=== PATIENT | male | born 1930 | race Caucasian/White ===

== ENCOUNTER 2017-01-10 17:26 | Emergency (ER) | payer MEDICARE ==
[~2017-01-10] VITALS: Ht 175.3 cm; Wt 62.1 kg
[~2017-01-10 17:26] MED LIST: CAYENNE450 MG PO; LEVOTHYROXINE125 MCG PO; NORCO 5-325 TA1 EACH PO
[2017-01-10] MEDS ORDERED: LEVOTHYROXINE88 MCG PO (17:39)
--- NOTE | 2017-01-12 18:23 | EKG ---
[facility] [address] [facility] [place] [address] Signed Sinus rhythm with occasional premature ventricular complexes Right bundle branch block Abnormal ECG When compared with ECG of 13-JUL-2016 12:21, premature ventricular complexes are now present QRS axis shifted right Borderline criteria for Inferior infarct are no longer present Confirmed by MARIMAR AU MD ([id number]) on 01/12/2017 6:23:26 PM Electronically Signed By: MARIMAR AU MD 01/12/17 1823 PATIENT NAME: TANISHABRENDA LILIANA Electrocardiogram DATE OF : 30 PHYSICIAN: MARIMAR AU MD REPORT #: [id number] REPORT IS CONFIDENTIAL AND NOT TO BE RELEASED WITHOUT AUTHORIZATION
== END 2017-01-10 20:23 | disposition home or self-care (01) ==
LOC: ED 17:26
DX: G45.9 Transient cerebral ischemic attack, unspecified (principal); I10 Essential (primary) hypertension; Z90.49 Acquired absence of other specified parts of digestive tract; Z79.899 Other long term (current) drug therapy
CPT/HCPCS: 70496; 70498; 71010; 80053; 85025; 85610; 85730; 93005; 93010; 99284; Q9967

== ENCOUNTER 2017-10-30 10:13 | Emergency (ER) | payer MEDICARE ==
[~2017-10-30] VITALS: Ht 175.3 cm; Wt 63.5 kg
--- OUTSIDE RECORDS SUMMARY | ~2017-10-30 | XMS | Clinical Summary ---
Demographics + + + | Address | [address] | | | [place] [address] | + + + | Home Phone | | + + + | Preferred Language | Unknown | + + + | Marital Status | Single | + + + | Oriental Orthodox Affiliation | Unknown | + + + | Race | Unknown | + + + | Ethnic Group | Other Race | + + + Author + + + | Author | [facility] | + + + | Organization | [facility] | + + + | Address | Unknown | + + + | Phone | Unavailable | + + + Care Team Providers + +------+ + | Care Finnish Rubber Name | Role | Phone | + +------+ + PP | Unavailable | + +------+ + Source Comments [facility] is fully live on both [facility] and [facility] InPatient.[facility] Allergies Not on File Current Medications Not on file Active Problems Not on file Social History + +-------+ +--------+------+ | Tobacco [...] on file | | + + + Plan of Treatment + + + + + | Health Maintenance | Due Date | Last Done | Comments | + + + + + | INFLUENZA VACCINE | | | | | (FLU SHOT) | 8 | | | + + + + + Results Not on filefrom Last 3 Months"
--- OUTSIDE RECORDS SUMMARY | ~2017-10-30 | XMS | Clinical Summary ---
Demographics + + + | Address | [address] | | | [place] [address] | + + + | Home Phone | | + + + | Preferred Language | Unknown | + + + | Marital Status | Single | + + + | Hoahaoism Affiliation | Unknown | + + + | Race | Unknown | + + + | Ethnic Group | Other Race | + + + Author + + + | Author | [facility] | + + + | Organization | [facility] | + + + | Address | Unknown | + + + | Phone | Unavailable | + + + Care Team Providers + +------+ + | Care Senior Business Intelligence Analyst Name | Role | Phone | + +------+ + PP | Unavailable | + +------+ + Source Comments [facility] is fully live on both [facility] Ambulatory and [facility] InPatient.[facility] Allergies Not on File Current Medications Not [...]
[~2017-10-30 10:13] MED LIST changes: +LEVOTHYROXINE88 MCG PO
[2017-10-30] MEDS ORDERED: LISINOPRIL5 MG PO (10:28)
--- NOTE | 2017-10-30 22:00 | EKG ---
[facility] [address] [address] Signed Normal sinus rhythm Right bundle branch block T wave abnormality, consider inferior ischemia Abnormal ECG When compared with ECG of 10-JAN-2017 17:57, premature ventricular complexes are no longer present Vent. rate has increased BY 38 BPM Nonspecific T wave abnormality no longer evident in Lateral leads Confirmed by MARIMAR AU MD ([id number]) on 10/30/2017 9:59:57 PM Electronically Signed By: MARIMAR AU MD 10/30/172199 PATIENT NAME: BRENDA GARAY LILIANA Electrocardiogram DATE OF : 30 PHYSICIAN: MARIMAR AU MD REPORT #: [id number] REPORT IS CONFIDENTIAL AND NOT TO BE RELEASED WITHOUT AUTHORIZATION
== END 2017-10-30 15:55 | disposition short-term general hospital (02) ==
LOC: ED 10:13
DX: I21.4 Non-ST elevation (NSTEMI) myocardial infarction (principal); I11.0 Hypertensive heart disease with heart failure; I50.9 Heart failure, unspecified; I10 Essential (primary) hypertension; Z79.899 Other long term (current) drug therapy
CPT/HCPCS: 71045; 80053; 81001; 83880; 84484; 85025; 85610; 93005; 93010; 96374; 99285

== ENCOUNTER 2017-11-03 11:36 | Emergency (ER) | payer MEDICARE ==
[~2017-11-03] VITALS: Ht 175.3 cm; Wt 63.5 kg
--- OUTSIDE RECORDS SUMMARY | ~2017-11-03 | XMS | Encounter Summary ---
Demographics + + + | Address | [address] | | | [place] [address] | + + + | Home Phone | | + + + | Preferred Language | Unknown | + + + | Marital Status | | + + + | Sikh Affiliation | Unknown | + + + | Race | Unknown | + + + | Ethnic Group | Unknown | + + + Author + + + | Author | [facility] | | | and [place] | + + + | Organization | [facility] | | | and [place] | + + + | Address | Unknown | + + + | Phone | Unavailable | + + + Support + + +---------+ + | Name | Relationship | Address | Phone | + + +---------+ + | Eloise Thompson | ECON | Unknown | | + + +---------+ + | JayAdelaidacandelaria [place] ECON | Unknown | | + + +---------+ + Care Team Providers + +------+ + | Care Casting Assistant Name | Role | Phone | + +------+ + | Deniz Rey | PCP | | | MD | | | + +------+ + Encounter Details +--------+ + + + + | Date | Type | Department | Care Team | Description | +--------+ + + + + | 10/31/ | Orders Only | [facility] | Divya Mead, NECKTIE MAKER | | | 2018 | | [facility] | | | | | | FUNCTION [address] | | | | | [place], | | | | | | [place] [address] | | | | | | [phone] | | | +--------+ + + + + Social History + +-------+ +--------+------+ | Tobacco Use | Types | Packs/Day | Years | Date | | | | | Used | | + +-------+ +--------+------+ | Never Assessed | | | | | + +-------+ +--------+------+ + + + | Sex Assigned at | Date Recorded | | | | + + + | Not on file | | + + + as of this encounter Plan of Treatment Not on fileas of this encounter Visit Diagnoses Not on filein this encounter"
--- OUTSIDE RECORDS SUMMARY | ~2017-11-03 | XMS | Clinical Summary ---
Demographics + + + | Address | [address] | | | [place] [address] | + + + | Home Phone | | + + + | Preferred Language | Unknown | + + + | Marital Status | | + + + | Oriental Orthodox Affiliation | Unknown | + + + | Race | Unknown | + + + | Ethnic Group | Unknown | + + + Author + + + | Author | [facility] | | | and Khadarana | + + + | Organization | [facility] | | | and Khadarana | + + + | Address | Unknown | + + + | Phone | Unavailable | + + + Support + + +---------+ + | Name | Relationship | Address | Phone | + + +---------+ + | Eloise Garay | ECON | Unknown | | + + +---------+ + | Fuentes Garay ECON | Unknown | | + + +---------+ + Care Team Providers + +------+ + | Care Seismic Prospecting Observer Helper Name | Role | Phone | + +------+ + | Deniz Rey | PP | | | MD | | | + +------+ + Allergies No Known Allergies Current Medications + + +--------+---------+------+------+-------+ | Prescription | Sig. | Disp. | Refills | Star | End | Statu | | | | | | t | Date | s | | | | | | Date | | | + + +--------+---------+------+------+-------+ | artificial tears | Place 1 drop into | | | | | Activ | | (REFRESH TEARS) | both eyes 4 times | | | | | e | | ophthalmic solution | daily. | | | | | | + + +--------+---------+------+------+-------+ | levothyroxine | Take 88 mcg by mouth | | | | | Activ | | (SYNTHROID) 88 mcg | every morning | | | | | e | | tablet | (before breakfast). | | | | | | + + +--------+---------+------+------+-------+ | Multiple | Take 1 capsule by | | | | | Activ | | Vitamins-Minerals | mouth 2 times daily. | | | | | e | | (PRESERVISION AREDS | | | | | | | | 2+MULTI VIT) CAPS | | | | | | | + + +--------+---------+------+------+-------+ | artificial tears | Place 1 drop into | | | | | Activ | | (REFRESH LIQUIGEL) | both eyes nightly. | | | | | e | | ophthalmic solution | | | | | | | + + +--------+---------+------+------+-------+ | lisinopril | Take 1 tablet by | 60 | 0 | 05/0 | | Activ | | (PRINIVIL, ZESTRIL) | mouth 2 times daily. | tablet | | 2/20 | | e | | 5 mg tablet | | | | 18 | | | + + +--------+---------+------+------+-------+ | aspirin 81 mg | Take 1 tablet by | 30 | | 05/0 | | Activ | | chewable tablet | mouth Daily. | tablet | | 3/20 | | e | | | | | | 18 | | | + + +--------+---------+------+------+-------+ | atorvaSTATin | Take 1 tablet by | 30 | 0 | 05/0 | | Activ | | (LIPITOR) 40 mg | mouth Daily. | tablet | | 2/20 | | e | | tablet | | | | 18 | | | + + +--------+---------+------+------+-------+ | metoprolol | Take 0.5 tablets by | 30 | 0 | 05/0 | | Activ | | tartrate (LOPRESSOR) | mouth 2 times daily. | tablet | | 2/20 | | e | | 25 mg tablet | | | | 18 | | | + + +--------+---------+------+------+-------+ | nitroglycerin | Place 1 tablet under | 25 | 0 | 05/0 | | Activ | | (NITROSTAT) 0.4 mg | the tongue every 5 | tablet | | 2/20 | | e | | SL tablet | minutes as needed | | | 18 | | | | | for Chest pain. | | | | | | + + +--------+---------+------+------+-------+ | spironolactone | Take 0.5 tablets by | 30 | 0 | 05/0 | | Activ | | (ALDACTONE) 25 mg | mouth Daily. | tablet | | 3/20 | | e | | tablet | | | | 18 | | | + + +--------+---------+------+------+-------+ | furosemide (LASIX) | Take 1 tablet by | 50 | 0 | 05/0 | | Activ | | 80 mg tablet | mouth Daily. | tablet | | 2/20 | | e | | | | | | 18 | | | + + +--------+---------+------+------+-------+ | potassium chloride | Take 1 tablet by | 30 | 0 | 05/0 | | Activ | | (KLOR-CON) 10 mEq | mouth Daily. | tablet | | 2/20 | | e | | CR tablet | | | | 18 | | | + + +--------+---------+------+------+-------+ | lisinopril | Take 5 mg by mouth | | | | 05/0 | Disco | | (PRINIVIL, ZESTRIL) | Daily. | | | | 2/20 | ntinu | | 5 mg tablet | | | | | 18 | ed | + + +--------+---------+------+------+-------+ Active Problems + + + | Problem | Noted Date | + + + | Acute exacerbation of CHF (congestive heart failure) ([facility]) | 10/30/2017 | + + + | Elevated troponin | 10/30/2017 | + + + | Essential hypertension | 10/30/2017 | + + + | Acquired hypothyroidism | 10/30/2017 | + + + | CVA (cerebral vascular accident) ([facility]) | 10/30/2017 | + + + | NSTEMI (non-ST elevated myocardial infarction) ([facility]) | 10/30/2017 | + + + Encounters +--------+ + + + + | Date | Type | Specialty | Care Team | Description | +--------+ + + + + | 10/31/ | Orders Only | | Divya Mead RRT | | | 2017 | | | | | +--------+ + + + + | 10/30/ | Hospital | | Mary Lou Dorado MD | NSTEMI (non-ST | | 2017 - | Encounter | | | elevated myocardial | | | | | | infarction) ([facility]); | | 11/02/ | | | | Essential | | 2017 | | | | hypertension; Acute | | | | | | on chronic | | | | | | congestive heart | | | | | | failure, unspecified | | | | | | heart failure type | | | | | | ([facility]); Acute on | | | | | | 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 | | | Name/Age/DO | | | B: Brenda | | | Liliana | | | Tanisha | | | 87 y.o. | | | 1930 | | | | | | Medical | | | Record | | | Number: | | | | | | [id number] | | | Date of | | | Admission: | | | | | | 10/30/2017 | | | Date | | | of | | | Discharge: | | | | | | 11/02/2017Adm | | | itting | | | Physician: | | | Mary Lou | | | MD Ave | | | Primary | | | Care | | | Provider: | | | Deniz Wilkerson | | | Krissy, | | | MDDischargi | | | ng | | | Physician: | | | Salty Sellers | | | MD Mason | | | | | | DISCHARGE | | | DIAGNOSES: | | | Active | | | Hospital | | | Problems | | | Diagnosis | | | | | | NSTEMI | | | (non-ST | | | elevated | | | myocardial | | | infarction) | | | | | | Acute | | | exacerbatio | | | n of | | | systolic | | | CHF | | | (congestive | | | heart | | | failure) | | | | | | | | | obstructive | | | uropathy | | | with gross | | | hematuria | | | following | | | catheter | | | placement | | | | | | Essential | | | | | | hypertensio | | | n | | | Acquired | | | hypothyroid | | | ism | | | Resolved | | | Hospital | | | Problems | | | Diagnosis | | | No resolved | | | problems | | | to display. | | | DISCHARGE | | | MEDICATIONS | | | : | | | Discharge | | | Medications | | | New | | | Medications | | | Details | | | aspirin 81 | | | mg | | | chewable | | | tabletNotes | | | to | | | patient: | | | For heart | | | and to help | | | prevent | | | blood clots | | | Take 1 | | | tablet by | | | mouth | | | Daily.Start | | | : 11/03/2017 | | | | | | atorvaSTATi | | | n 40 mg | | | tabletNotes | | | to | | | patient: | | | For | | | cholesterol | | | Take 1 | | | tablet by | | | mouth | | | Daily.aka: | | | LIPITOR | | | furosemide | | | 80 mg | | | tabletNotes | | | to | | | patient: | | | For fluid | | | overload | | | Take 1 | | | tablet by | | | mouth | | | Daily.aka: | | | LASIX | | | metoprolol | | | tartrate 25 | | | mg | | | tabletNotes | | | to | | | patient: | | | For heart | | | and blood | | | pressure | | | Take 0.5 | | | tablets by | | | mouth 2 | | | times | | | daily.aka: | | | LOPRESSOR | | | nitroglycer | | | in 0.4 mg | | | SL tablet | | | Place 1 | | | tablet | | | under the | | | tongue | | | every 5 | | | minutes as | | | needed for | | | Chest | | | pain.aka: | | | NITROSTAT | | | potassium | | | chloride 10 | | | mEq CR | | | tabletNotes | | | to | | | patient: | | | To help | | | replace | | | potassium | | | Take 1 | | | tablet by | | | mouth | | | Daily.aka: | | | KLOR-CON | | | spironolact | | | one 25 mg | | | tablet Take | | | 0.5 | | | tablets by | | | mouth | | | Daily.aka: | | | | | | ALDACTONESt | | | art: | | | 11/03/2017 | | | Changed | | | Medications | | | Details | | | lisinopril | | | 5 mg | | | tabletNotes | | | to | | | patient: | | | For heart | | | and blood | | | pressure | | | Take 1 | | | tablet by | | | mouth 2 | | | times | | | daily.What | | | changed: | | | when to | | | take | | | thisaka: | | | PRINIVIL, | | | ZESTRIL | | | Unchanged | | | Medications | | | Details | | | artificial | | | tears | | | ophthalmic | | | solutionNot | | | es to | | | patient: | | | For dry | | | eyes Place | | | 1 drop into | | | both eyes | | | 4 times | | | daily.aka: | | | REFRESH | | | TEARS | | | REFRESH | | | LIQUIGEL | | | ophthalmic | | | solutionGen | | | elías drug: | | | artificial | | | tearsNotes | | | to | | | patient: | | | For dry | | | eyes Place | | | 1 drop into | | | both eyes | | | nightly. | | | levothyroxi | | | ne 88 mcg | | | tabletNotes | | | to | | | patient: | | | For thyroid | | | Take 88 | | | mcg by | | | mouth every | | | morning | | | (before | | | breakfast). | | | aka: | | | SYNTHROID | | | PRESERVISIO | | | N AREDS | | | 2+MULTI VIT | | | Caps Take | | | 1 capsule | | | by mouth 2 | | | times | | | daily. | | | DISCHARGE | | | INSTRUCTION | | | S: | | | Follow-up | | | Information | | | Deniz | | | C Hitzman, | | | MD On | | | 11/04/2017. | | | Specialty: | | | Family | | | MedicineWhy | | | : Please | | | check in at | | | 9:50 am | | | for an appt | | | @ 10:00 | | | am.Contact | | | information | | | :[address] | | [address] | | | [address] | | | n [place] | | | [phone] | | | [phone] | | | | | | REFERENCE | | | LAB | | | [facility] | | | [facility]OR[facility] | | | On | | | 11/03/2017. | | | Specialty: | | | LabWhy: | | | Please have | | | lab work | | | done on | | | , | | | 11/03 prior | | | to appt on | | | 11/04 with | | | MD. This | | | will allow | | | your MD to | | | have lab | | | results for | | | the | | | appt.Contac | | | t | | | information | | | :[address] | | [address] | | | [address] | | | n [place] | | | [phone] | | | [phone] | | | | | | RESULTS: | | | Transthorac | | | ic | | | Echocardiog | | | demetrice | | | Report | | | (TTE) Demo | | | graphics P | | | atient Name | | | | | | TANISHA | | | BRENDA | | | Room Number | | | | | | | | | [address] | | | | | | | | | [address] | | | ent Number | | | [id number] | | | | | | Date of | | | Study | | | | | | 10/30/2017 | | | Visit | | | Number | | | [id number] | | | Accession | | | | | | [id number] | | | HS | | | Referring | | | Physician | | | AVE | | | GRAEME-HWA Nu | | | mber Date | | | of | | | [birth year] | | | 0 | | | Sonograph | | | er | | | | | | ZILLIOX | | | BEVERLY | | | | | | | | | | | | | | | | | | | | | | | | | | | RDCS Age | | | | | | 87 | | | year(s) | | | | | | Interpret | | | ing | | | J | | | DAWIT | | | ERICKA, | | | MD | | | | | | | | | | | | | | | Cardiolog | | | ist Gender | | | | | | Male | | | | | | | | | Nurse | | | | | | | | | | | | | | | | | | Stress | | | TechnicianP | | | rocedureTyp | | | e of | | | Study TTE | | | procedure: | | | ECHO | | | Complete.Pr | | | ocedure | | | dateDate: | | | 10/30/2017S | | | tart: 07:04 | | | | | | PMTechnical | | | Quality: | | | Good | | | visualizati | | | onStudy | | | Location: | | | [facility] | | | ications: | | | Myocardial | | | Infarction, | | | NSTEMI | | | 410.90/I21. | | | 4.Patient | | | Status: | | | STATHeight: | | | 68 | | | inchesWeigh | | | t: 149 | | | poundsBSA: | | | 1.8 m^2BMI: | | | 22.66 | | | kg/m^2Concl | | | usionsSumma | | | ryMild to | | | moderate | | | mitral | | | regurgitati | | | on | | | present.The | | | left | | | atrium is | | | moderately | | | dilated.LA | | | pressure is | | | elevated | | | (by Doppler | | | | | | ratios)Left | | | | | | ventricular | | | size | | | appears to | | | be mildly | | | increased | | | with an | | | ejectionfra | | | ction | | | estimated | | | at 30-35 | | | %.Akinetic | | | inferior | | | and | | | posterior | | | basal blanca | | | of left | | | ventricle.G | | | lobal | | | hypokinesis | | | of the | | | left | | | ventricle.D | | | oppler flow | | | profile | | | suggests a | | | pseudo-norm | | | al | | | diastolic | | | filling | | | pattern.IVC | | | is not | | | well | | | visualized | | | but seems | | | to be | | | dilated | | | with | | | impaired | | | inspiratory | | | collapse | | | consistent | | | with | | | elevated | | | right | | | atrial | | | pressure.Si | | | gnature---- | | | | | | | | | | | | | | | | | | | | | ------ Aminata | | | ctronically | | | signed by | | | Virgie LANCASTER | | | ERICKA | | | (Interpre | | | vickie | | | physician) | | | on | | | 018 09:45 | | | AM--------- | | | | | | | | | | | | | | | | | | | | | -FindingsMi | | | tral | | | ValveMild | | | to moderate | | | mitral | | | regurgitati | | | on | | | present.Aor | | | tic | | | ValveDiffus | | | e | | | thickening | | | (sclerosis) | | | of the | | | aortic | | | valve cusps | | | without | | | reducedexcu | | | rsion.Aorti | | | c valve | | | appears | | | trileaflet. | | | Trace | | | aortic | | | regurgitati | | | on is | | | noted.Tricu | | | spid | | | ValveStruct | | | urally | | | normal | | | tricuspid | | | valve with | | | trace | | | regurgitati | | | on.Pulmonic | | | | | | ValveStruct | | | urally | | | normal | | | pulmonic | | | valve with | | | trace | | | regurgitati | | | on.Left | | | AtriumThe | | | left atrium | | | is | | | moderately | | | dilated.LA | | | pressure is | | | elevated | | | (by Doppler | | | | | | ratios)Left | | | | | | VentricleLe | | | ft | | | ventricular | | | size | | | appears to | | | be mildly | | | increased | | | with an | | | ejectionfra | | | ction | | | estimated | | | at 30-35 | | | %.Akinetic | | | inferior | | | and | | | posterior | | | basal blanca | | | of left | | | ventricle.G | | | lobal | | | hypokinesis | | | of the | | | left | | | ventricle.D | | | oppler flow | | | profile | | | suggests a | | | pseudo-norm | | | al | | | diastolic | | | filling | | | pattern.Rig | | | ht | | | AtriumNorma | | | l right | | | atrial | | | size.Right | | | VentricleNo | | | rmal right | | | ventricular | | | size and | | | function.Pe | | | ricardial | | | EffusionNo | | | evidence of | | | | | | pericardial | | | | | | effusion.Pl | | | eural | | | EffusionNo | | | evidence of | | | pleural | | | effusion.Mi | | | scellaneous | | | Aortic root | | | dimension | | | within | | | normal | | | limits.IVC | | | is not well | | | visualized | | | but seems | | | to be | | | dilated | | | with | | | impaired | | | inspiratory | | | collapse | | | consistent | | | with | | | elevated | | | right | | | atrial | | | pressure.Va | | | lves Meme | | | l | | | Valve Peak | | | E-Wave: | | | 0.71 m/s | | | | | | | | | RAMONA | | | PISA: 0.15 | | | cm^2 Peak | | | A-Wave: | | | 0.84 | | | m/s Tissue | | | | | | Doppler Se | | | ptal e' | | | Velocity: | | | 0.04 | | | m/s Septal | | | E/e' | | | Ratio:17.76 | | | Aortic | | | Valve Tric | | | uspid | | | Valve TR | | | Velocity: | | | 3.08 | | | m/sStructur | | | es Left | | | Atrium LA | | | A/P | | | Dimension: | | | 4.59 cm | | | | | | | | | LA Area: | | | 24.78 | | | cm^2 LA | | | Vol/BSA | | | Index: 40 | | | mL/m^2 | | | | | | LA | | | Volume: | | | 72.18 | | | ml Left | | | Ventricle | | | Diastolic | | | Dimension: | | | 6.08 cm | | | | | | Systolic | | | Dimension: | | | 4.98 | | | cm Septum | | | Diastolic: | | | 1.07 cm PW | | | Diastolic: | | | 0.96 | | | cm EF | | | [id number] | | | % EF | | | Calculated: | | | | | | 29% Miscel | | | laneous Ao | | | rta Aortic | | | Root: 3.48 | | | | | | cm Ascendi | | | ng Aorta: | | | 3.57 cm | | | External | | | Result | | | Report | | | Final | | | Impression/ | | | Recommendat | | | ion | | | | | | | | | | | | NUCLEAR | | | MEDICINE | | | STRESS TEST | | | REPORT | | | | | | Patient | | | Name: | | | Brenda Ford | | | Tanisha | | | Study Date: | | | 10/31/2017 | | | Primary | | | Care | | | Provider: | | | Deniz Wilkerson | | | MD Krissy | | | MRN: | | | [id number] | | | : | | | 1930 | | | Age: 87 | | | y.o. | | | Gender: | | | male | | | CLINICAL | | | HISTORY/ANANT | | | GNOSIS: | | | NSTEMI | | | complicated | | | by new | | | onset CHF | | | REGADENOS | | | ON | | | SESTAMIBI | | | STRESS | | | TESTIndicat | | | ion:Risk | | | stratify | | | post NSTEMI | | | with late | | | presentatio | | | n. | | | Procedure | | | : In the | | | supine | | | position, | | | .4 mg of | | | Regadenoson | | | was | | | infused | | | intravenous | | | ly over 10 | | | seconds. | | | Blood | | | pressure | | | and EKG | | | were | | | monitored | | | every 1 | | | minute. 5 | | | mL of | | | normal | | | saline was | | | utilized to | | | flush the | | | IV line. | | | Twenty | | | seconds | | | later, 10.3 | | | mCi | | | sestamibi | | | intravenous | | | injection. | | | SPECT | | | myocardial | | | perfusion | | | imaging was | | | acquired | | | with wall | | | motion | | | analysis. | | | Rest | | | imaging was | | | performed | | | using 30.3 | | | mCi | | | Sestamibi | | | intravenous | | | injection. | | | Repeated | | | SPECT | | | myocardial | | | perfusion | | | imaging was | | | acquired | | | with wall | | | motion | | | analysis. | | | Hemodynam | | | ics: Heart | | | rate | | | baseline 80 | | | beats per | | | minute, | | | peak 90 | | | beats per | | | minute. | | | Abnormal | | | EKG with | | | RBBB, ST | | | depression. | | | Peak | | | unchanged. | | | Side | | | Effects: | | | None. Arrh | | | ythmia: | | | None. Rega | | | denoson | | | Sestamibi | | | Myocardial | | | Perfusion | | | Imaging | | | Result: | | | The | | | Regadenoson | | | Sestamibi | | | tomographic | | | images, | | | reviewed | | | without the | | | | | | attenuation | | | | | | compensatio | | | n | | | resolution, | | | revealed a | | | large, | | | primarily | | | fixed | | | defect in | | | the | | | inferoapica | | | l, apical, | | | mid and | | | basilar | | | inferior | | | segment, | | | apical, mid | | | and basal | | | posterior | | | segments | | | and the | | | basilar and | | | mid | | | inferosepta | | | l | | | segments.Qu | | | antitative | | | data: SSS | | | = 19, SRS | | | = 15 and a | | | difference | | | score of 4. | | | These | | | indicate | | | high | | | mortality | | | risk but | | | minimal | | | active | | | ischemia. | | | Gated | | | SPECT | | | reveals | | | severely | | | reduced | | | left | | | ventricular | | | systolic | | | function. | | | LVEF by | | | gated SPECT | | | is 21%. | | | IMPRESSIO | | | N: 1. | | | Regadenoson | | | EKG is | | | unrevealing | | | .2. High | | | mortality | | | risk | | | study.3. | | | Large | | | defect | | | unchanged | | | between | | | rest and | | | stress | | | involving | | | inferior | | | and | | | posterior | | | segments | | | froma base | | | to apex as | | | well as | | | inferosepta | | | l segments. | | | No | | | evidence of | | | | | | significant | | | active | | | myocardial | | | ischemia.4. | | | Severely | | | reduced | | | left | | | ventricular | | | systolic | | | function, | | | ejection | | | fraction | | | 21% (LVEF | | | probably | | | underestima | | | jose by this | | | technique | | | due to low | | | counts in | | | inferior | | | segments) | | | Liane | | | d by: | | | Susie Lancaster | | | MD Ericka | | | FACC | | | | | | | | | 10/31/2017, | | | 13:09 | | | Results for | | | TANISHA, | | | BRENDA FORD | | | (MRN | | | [id number] | | | ) as of | | | 11/02/2017 | | | 19:48 Ref. | | | Range | | | 11/02/2017 | | | 04:46 NA | | | Latest Ref | | | Range: 136 | | | - 149 | | | mmol/L 144 | | | K Latest | | | Ref Range: | | | 3.5 - 5.1 | | | mmol/L 3.5 | | | Chloride | | | Latest Ref | | | Range: 98 - | | | 109 mmol/L | | | 105 Carbon | | | dioxide | | | Latest Ref | | | Range: 24 - | | | 31 mmol/L | | | 30 ANION | | | GAP Latest | | | Ref Range: | | | 3 - 16 | | | mmol/L 9 | | | GLUCOSE | | | Latest Ref | | | Range: 70 - | | | 109 mg/dL | | | 116 (H) BUN | | | Latest Ref | | | Range: 7 - | | | 18 mg/dL | | | 35 (H) | | | Creatinine | | | Latest Ref | | | Range: 0.60 | | | - 1.30 | | | mg/dL 1.59 | | | (H) | | | BUN/CREA | | | Unknown | | | 22.0 EGFR | | | IF NOT | | | | | | HONDURAN | | | Latest Ref | | | Range: >=60 | | | | | | mL/min/1.73 | | | m2 41 (L) | | | Calcium | | | Latest Ref | | | Range: 8.3 | | | - 10.5 | | | mg/dL 8.2 | | | (L) Results | | | for | | | TANISHA, | | | BRENDA FORD | | | (MRN | | | [id number] | | | ) as of | | | 11/02/2017 | | | 19:48 Ref. | | | Range | | | 10/31/2017 | | | 08:27 | | | 10/31/2017 | | | 16:13 | | | 11/01/2017 | | | 04:14 | | | B-TYPE | | | NATRIURETIC | | | PEPTIDE | | | Latest Ref | | | Range: <100 | | | pg/mL | | | 3,943 (H) | | | 2,668 (H) | | | Troponin I | | | Latest Ref | | | Range: | | | <0.06 ng/mL | | | 36.55 | | | (HH) | | | Results for | | | TANISHA, | | | BRENDA FORD | | | (MRN | | | [id number] | | | ) as of | | | 11/02/2017 | | | 19:48 Ref. | | | Range | | | 10/30/2017 | | | 17:17 | | | 10/30/2017 | | | 17:20 | | | 10/30/2017 | | | 23:09 | | | 10/31/2017 | | | 04:06 | | | 10/31/2017 | | | 08:27 | | | 10/31/2017 | | | 16:13 | | | Troponin I | | | Latest Ref | | | Range: | | | <0.06 ng/mL | | | 21.67 (HH) | | | 42.90 | | | (HH) | | | 36.55 (HH) | | | Results for | | | TANISHA, | | | BRENDA LILIANA | | | (MRN | | | [id number] | | | ) as of | | | 11/02/2017 | | | 19:48 Ref. | | | Range | | | 11/02/2017 | | | 04:46 WBC | | | Latest Ref | | | Range: 4.0 | | | - 11.0 K/uL | | | 8.1 RBC | | | COUNT | | | Latest Ref | | | Range: 4.30 | | | - 5.70 | | | M/uL 3.97 | | | (L) Hgb | | | Latest Ref | | | Range: 13.5 | | | - 18.0 | | | g/dL 11.5 | | | (L) Hct, | | | Final | | | Latest Ref | | | Range: 40.0 | | | - 51.0 % | | | 35.3 (L) | | | MCV Latest | | | Ref Range: | | | 83.0 - | | | 101.0 fL | | | 88.9 MCH | | | Latest Ref | | | Range: 28.0 | | | - 35.0 pg | | | 28.9 MCHC | | | Latest Ref | | | Range: 32.0 | | | - 36.0 | | | g/dL 32.5 | | | RDW-CV | | | Latest Ref | | | Range: | | | <15.0 % | | | 13.9 | | | Platelet | | | Count | | | Latest Ref | | | Range: 140 | | | - 440 K/uL | | | 174 | | | [facility] | | | COURSE: | | | Please | | | refer to | | | the H&P for | | | full | | | details. | | | In short | | | this | | | 87-year-old | | | male | | | presented | | | with | | | shortness | | | of breath | | | to the | | | [facility] | [facility] | | | and was | | | found to be | | | in CHF | | | with a | | | elevated | | | troponin. | | | He denied a | | | history of | | | chest pain | | | beginning | | | of a | | | one-week | | | history of | | | worsening | | | dyspnea.Pat | | | ient was | | | admitted | | | and seen by | | | | | | interventio | | | nal | | | cardiology | | | and not | | | felt to be | | | a good | | | candidate | | | for | | | conventiona | | | l approach | | | and | | | underwent | | | stress | | | testing | | | which | | | showed | | | significant | | | injury to | | | his heart | | | without | | | evidence of | | | | | | significant | | | | | | reversibili | | | ty. | | | Discussion | | | between the | | | patient | | | and | | | cardiology | | | ensued and | | | it was | | | elected to | | | treat him | | | conservativ | | | amaury.He was | | | diuresed | | | with | | | furosemide | | | 40 mg IV | | | twice daily | | | and had | | | progressive | | | | | | improvement | | | with his | | | chest x-ray | | | appearance | | | improving | | | and the | | | patient | | | comfortable | | | on room | | | air both | | | when laying | | | supine | | | sleeping | | | and up and | | | mobile. | | | Radiographi | | | rossana he | | | continued | | | to have a | | | wet | | | appearance | | | reported | | | that his | | | with | | | Alzheimer's | | | disease | | | acquired | | | him to be | | | at home | | | order to | | | help with | | | her both | | | from a | | | functional | | | standpoint | | | and | | | behaviorall | | | y. He thus | | | requested | | | early | | | discharge. | | | I did | | | advise | | | patient | | | that he | | | typically | | | would | | | require 1-2 | | | more days | | | of IV | | | diuresis | | | but in lieu | | | of of his | | | concerns I | | | did agree | | | to | | | discharge. | | | The | | | patient | | | previously | | | had been on | | | lisinopril | | | 5 mg daily | | | will be | | | discharged | | | on | | | furosemide | | | 80 mg once | | | daily with | | | Spironolact | | | one 12.5 mg | | | daily and | | | potassium | | | chloride 10 | | | mEq daily. | | | He had | | | lisinopril | | | increased | | | from 5 mg | | | daily to 5 | | | mg twice | | | daily. He | | | still has | | | mild heart | | | failure I | | | did not | | | adjust the | | | patient's | | | beta-blocka | | | de but | | | should he | | | do well on | | | this | | | regimen | | | would | | | consider | | | once | | | resolution | | | of | | | pulmonary | | | edema to | | | convert to | | | carvedilol. | | | Otherwise | | | I did | | | discuss | | | with the | | | patient | | | that he is | | | on a number | | | of agents | | | that can | | | alter | | | potassium | | | levels. | | | His | | | potassium | | | this | | | hospitaliza | | | tion ranged | | | from | | | 3.4-3.6 and | | | thus I | | | believe the | | | use of | | | lisinopril, | | | Aldactone, | | | | | | furosemide, | | | with | | | potassium | | | supplements | | | as | | | warranted. | | | I advised | | | him I would | | | recommend | | | weekly | | | potassium | | | checks | | | initially | | | to make | | | sure he | | | does not | | | become | | | hyperkalemi | | | c and given | | | his | | | significant | | | elevation | | | in BNP this | | | could also | | | be | | | followed | | | relative to | | | his heart | | | failure. | | | Did advise | | | him given | | | that he is | | | going home | | | early that | | | I would | | | feel that | | | appropriate | | | follow-up | | | should be | | | started | | | this coming | | | Tuesday to | | | assess | | | renal | | | function | | | and | | | potassium | | | and then | | | weekly | | | until he is | | | clinically | | | stable. | | | We | | | discussed | | | the issue | | | of | | | potassium | | | on his | | | multiple | | | drug | | | regimen and | | | discuss | | | the | | | symptoms of | | | heart | | | failure | | | including | | | orthopnea | | | and | | | exertional | | | dyspnea and | | | his need | | | to have | | | medication | | | adjustments | | | early | | | should the | | | symptoms | | | become | | | problematic | | | . He is | | | scheduled | | | with his | | | PCPDr. | | | Flexzman | | | this Tuesday | | | with | | | appointment | | | given at | | | discharge.P | | | atient has | | | a pending | | | urine | | | culture | | | which at 24 | | | hours is | | | no growth | | | and had a | | | post void | | | residual of | | | 30 cc | | | following | | | catheter | | | removal | | | prior to | | | discharge.P | | | HYSICAL | | | EXAM: Temp: | | | 36 C | | | (96.8 F), | | | Pulse: 74, | | | Resp: 17, | | | BP: 132/66, | | | SpO2 97 % | | | on room air | | | at flow | | | rate | | | 2L/minTemp | | | Min: 35.9 | | | C (96.6 | | | F) Max: | | | 36.8 C | | | (98.2 | | | F)Weight: | | | 67.9 kg | | | (149 lb | | | 11.1 oz) | | | Patient | | | seen and | | | examined by | | | me on | | | discharge | | | day Greater | | | than 30 | | | minutes | | | were spent | | | on | | | discharge | | | and | | | coordinatio | | | n of | | | post-hospit | | | al | | | care.Electr | | | onically | | | signed by: | | | Salty E. | | | MD Mason, | | | 11/02/2017 | | | 14:39 | | | [place] | | | [place] | | | [facility] | | | [facility] | | | ons of this | | | chart may | | | have been | | | created | | | with Dragon | | | voice | | | recognition | | | software. | | | Occasional | | | wrong-word | | | or | | | | | | sound-alike | | | | | | | | | substitutio | | | ns may have | | | occurred | | | due to the | | | inherent | | | limitations | | | of voice | | | recognition | | | software. | | | Please read | | | the chart | | | carefully | | | and | | | recognize, | | | using | | | context, | | | where these | | | | | | substitutio | | | ns have | | | occurred | +---+ + from Last 3 Months Immunizations + + + + | Name | Dates Previously Given | Next Due | + + + + | INFLUENZA, | 04/03/2017, 04/20/1996 | | | UNSPECIFIED | | | | FORMULATION | | | + + + + Social History + [...] on file | | + + + Last Filed Vital Signs + + + + | Vital Sign | Reading | Time Taken | + + + + | Blood Pressure | 132/66 | 11/02/2017 1100 PDT | + + + + | Pulse | 74 | 11/02/2017 1100 PDT | + + + + | Temperature | 36 C (96.8 F) | 11/02/2017 1100 PDT | + + + + | Respiratory Rate | 17 | 11/02/2017 1100 PDT | + + + + | Oxygen Saturation | 97% | 11/02/2017 1100 PDT | + + + + | Inhaled Oxygen | - | - | | Concentration | | | + + + + | Weight | 63.2 kg (139 lb 5.3 | 11/02/2017 030 PDT | | | oz) | | + + + + | Height | 172.7 cm (5' 8") | 10/30/2017 1700 PDT | + + + + | Body Mass Index | 21.19 | 11/02/2017 0300 PDT | + + + + Plan of Treatment + + + + + | Health Maintenance | Due Date | Last Done | Comments | + + + + + | Vaccine: | | | | | Dtap/Tdap/Td (1 - | 9 | | | | Tdap) | | | | + + + + + | Vaccine: | | | | | Pneumococcal 65+ | 5 | | | | Low/Medium Risk (1 | | | | | of 2 - PCV13) | | | | + + + + + | Vaccine: Influenza | Completed | 04/03/2017, 04/20/1996 | | + + + + + Results CBC with Differential (11/02/2017 0446) + + + + | Component | Value | Ref Range | + + + + | WBC | 8.1 | 4.0 - 11.0 K/uL | + + + + | RBC | 3.97 (L) | 4.30 - 5.70 M/uL | + + + + | Hgb | 11.5 (L) | 13.5 - 18.0 g/dL | + + + + | Hct | 35.3 (L) | 40.0 - 51.0 % | + + + + | MCV | 88.9 | 83.0 - 101.0 fL | + + + + | MCH | 28.9 | 28.0 - 35.0 pg | + + + + | MCHC | 32.5 | 32.0 - 36.0 g/dL | + + + + | RDW-CV | 13.9 | <15.0 % | + + + + | Platelet Count | 174 | 140 - 440 K/uL | + + + + | MPV | 9.7 | fL | + + + + | % Neutrophils | 75.0 | 45.0 - 82.0 % | + + + + | % Lymphocytes | 13.6 (L) | 20.0 - 45.0 % | + + + + | % Monocytes | 8.5 | 4.0 - 12.0 % | + + + + | % Eosinophils | 2.5 | 0.0 - 5.0 % | + + + + | % Basophils | 0.4 | 0.0 - 1.0 % | + + + + | Absolute Neutrophils | 6.10 | 1.80 - 8.50 K/uL | + + + + | Absolute Lymphocytes | 1.10 | 0.60 - 3.20 K/uL | + + + + | Absolute Monocytes | 0.70 | 0.00 - 1.00 K/uL | + + + + | Absolute Eosinophils | 0.20 | 0.00 - 0.40 K/uL | + + + + | Absolute Basophils | 0.00 | 0.00 - 0.10 K/uL | + + + + + + + | Specimen | Performing Laboratory | + + + | Blood | [facility] [address] | | | [place] [address] | + + + Basic Metabolic Panel (11/02/2017 8606)Only the most recent of 3 results within the time cheyenne rojas is included. + + + + | Component | Value | Ref Range | + + + + | NA | 144 | 136 - 149 mmol/L | + + + + | K | 3.5 | 3.5 - 5.1 mmol/L | + + + + | CL | 105 | 98 - 109 mmol/L | + + + + | CO2 | 30 | 24 - 31 mmol/L | + + + + | ANION GAP | 9 | 3 - 16 mmol/L | + + + + | GLUCOSE | 116 (H) | 70 - 109 mg/dL | + + + + | BUN | 35 (H) | 7 - 18 mg/dL | + + + + | Creatinine, | 1.59 (H) | 0.60 - 1.30 mg/dL | | Serum/Plasma | | | + + + + | eGFR if not | 41 (L)Comment: GLOMERULAR FILTRATION | >=60 mL/min/1.73m2 | | HONDURAN | RATE,ESTIMATED mL/min/1.69t6Bndx than | | | | 60 Chronic kidney disease,if found over | | | | a 3-month period.Less than 15 Kidney | | | | failureFor Americans,multiply the | | | | calculated GFR by 1.21. | | | | | | | | | | + + + + | CALCIUM | 8.2 (L) | 8.3 - 10.5 mg/dL | + + + + | BUN/CREA | 22.0 | | + + + + + + + | Specimen | Performing Laboratory | + + + | Blood | [facility] [address] | | | [place] [address] | + + + XR Chest PA and Lateral (11/01/2017 0919) + + | Narrative | + + | CLINICAL INFORMATION: chf. COMPARISON: 10/31/2017. FINDINGS: Frontal and | | lateral views of the chest. Lungs: Interval decreased prominence of the central | | pulmonary vasculature and interstitial lung markings. Small bilateral pleural | | effusions. Minimal opacities at the lung bases likely reflect atelectasis. No | | pneumothorax. Heart/mediastinum: Cardiac silhouette is of normal size. No | | mediastinal widening. Bones: Right humeral head soft tissue anchor. IMPRESSION | | - Decreased pulmonary edema with small bilateral pleural effusions. Dictated and | | Signed by: Neno Fields MD Electronically signed: 11/01/2017 12:53 PM | + + + + | Procedure Note | + + | Roberto, Rad Results In - 11/01/2017 1256 PDT CLINICAL INFORMATION: chf. | | | | COMPARISON: 10/31/2017. | | | | FINDINGS: | | Frontal and lateral views of the chest. | | | | Lungs: Interval decreased prominence of the central pulmonary vasculature and | | interstitial lung markings. Small bilateral pleural effusions. Minimal | | opacities at the lung bases likely reflect atelectasis. No pneumothorax. | | | | Heart/mediastinum: Cardiac silhouette is of normal size. No mediastinal | | widening. | | | | Bones: Right humeral head soft tissue anchor. | | | | IMPRESSION - | | Decreased pulmonary edema with small bilateral pleural effusions. | | | | Dictated and Signed by: Neno Fields MD | | Electronically signed: 11/01/2017 12:53 PM | + + Urinalysis With Microscopic (11/01/2017 0842) + + + + | Component | Value | Ref Range | + + + + | COLOR | Red (A) | Light Yellow, | | | | Yellow, Straw | + + + + | CLARITY | Turbid (A) | Clear | + + + + | PH UA | 6.0 | 5.0 - 8.0 | + + + + | Specific [place] | 1.024 | 1.001 - 1.030 | + + + + | PROTEIN UA | 100 mg/dL (A) | Negative | + + + + | BLOOD UA | Large (A) | Negative | + + + + | GLUCOSE UA | 50 mg/dL (A) | Negative | + + + + | KETONES UA | Trace (A) | Negative | + + + + | BILIRUBIN UA | Negative | Negative | + + + + | NITRITE UA | Negative | Negative | + + + + | LEUKOCYTES ESTERASE | Negative | Negative | | UA | | | + + + + | UROBILINOGEN UA | Negative | 0.2 mg/dL, 1.0 | | | | mg/dL, Negative | + + + + | WBC UA | 0-2 | 0 - 2 /HPF | + + + + | RBC UA | >100 (A)Comment: This is a corrected | 0 - 2 /HPF | | | result. Previous result was 0-2 /HPF on | | | | 11/01/2017 at 0941 PDT | | + + + + | SQUAMOUS EPITHELIAL | 0-2 | 0 - 2 /LPF | | UA | | | + + + + | BACTERIA UA | 2+ (A)Comment: This is a corrected result. | Negative /HPF | | | Previous result was Negative /HPF on | | | | 11/01/2017 at 0941 PDT | | + + + + + + + | Specimen | Performing Laboratory | + + + | Urine - Urine, | [facility] [address] | | Indwelling Catheter | [place] [address] | + + + CBC no Differential (11/01/2017 7023)Only the most recent of 3 results within the time calderon od is included. + + + + | Component | Value | Ref Range | + + + + | WBC | 9.3 | 4.0 - 11.0 K/uL | + + + + | RBC | 3.98 (L) | 4.30 - 5.70 M/uL | + + + + | Hgb | 11.5 (L) | 13.5 - 18.0 g/dL | + + + + | Hct | 35.5 (L) | 40.0 - 51.0 % | + + + + | MCV | 89.1 | 83.0 - 101.0 fL | + + + + | MCH | 28.9 | 28.0 - 35.0 pg | + + + + | MCHC | 32.4 | 32.0 - 36.0 g/dL | + + + + | RDW-CV | 14.1 | <15.0 % | + + + + | Platelet Count | 162 | 140 - 440 K/uL | + + + + | MPV | 9.6 | fL | + + + + + + + | Specimen | Performing Laboratory | + + + | Blood | [facility] [address] | | | [place] [address] | + + + B Type Natriuretic Peptide (11/01/2017 0414)Only the most recent of 2 results within the period is included. + + + + | Component | Value | Ref Range | + + + + | BNP | 2,668 (H) | <100 pg/mL | + + + + + + + | Specimen | Performing Laboratory | + + + | Blood | [facility] [address] | | | [place] [address] | + + + Magnesium (11/01/2017 8616)Only the most recent of 3 results within the time period is incl uded. + +-------+ + | Component | Value | Ref Range | + +-------+ + | MG | 2.0 | 1.8 - 2.5 mg/dL | + +-------+ + + + + | Specimen | Performing Laboratory | + + + | Blood | [facility] [address] | | | [place] [address] | + + + Renal Function Panel (11/01/2017 0414)Only the most recent of 2 results within the time per iod is included. + + + + | Component | Value | Ref Range | + + + + | NA | 142 | 136 - 149 mmol/L | + + + + | K | 3.4 (L) | 3.5 - 5.1 mmol/L | + + + + | CL | 108 | 98 - 109 mmol/L | + + + + | CO2 | 27 | 24 - 31 mmol/L | + + + + | ANION GAP | 7 | 3 - 16 mmol/L | + + + + | GLUCOSE | 103 | 70 - 109 mg/dL | + + + + | BUN | 32 (H) | 7 - 18 mg/dL | + + + + | Creatinine, | 1.50 (H) | 0.60 - 1.30 mg/dL | | Serum/Plasma | | | + + + + | eGFR if not | 44 (L) | >=60 mL/min/1.73m2 | | HONDURAN | | | + + + + | CALCIUM | 7.9 (L) | 8.3 - 10.5 mg/dL | + + + + | ALBUMIN | 2.7 (L) | 3.2 - 5.0 g/dL | + + + + | PHOSPHORUS | 2.6 | 2.5 - 4.6 mg/dL | + + + + | BUN/CREA | 21.3 | | + + + + + + + | Specimen | Performing Laboratory | + + + | Blood | [facility] [address] | | | [place] [address] | + + + Troponin I (10/31/2017 0493)Only the most recent of 3 results within the time period is inc luded. + + + + | Component | Value | Ref Range | + + + + | Troponin I | 36.55 ()Comment: Reference | <0.06 ng/mL | | | Ranges:0.00-0.06 = NORMAL>0.06 = | | | | SUSPICIOUS FOR MYOCARDIAL DAMAGE NOTE: | | | | Values greater than 0.50 ng/mL have been | | | | shown to be strongly associated with acute | | | | myocardial infarction. The [employer] | | | | of Cardiology (ACC) recommends a decision | | | | limit of 0.06 ng/mL for this | | | | assay. Results greater than 0.06 can | | | | reflect a pre-infarct acute coronary | | | | syndrome, but can also reflect myocardial | | | | necrosis or injury that is not due to | | | | coronary artery disease. Some of these | | | | causes are sepsis, hypocolemia, atrial | | | | fibrillation, heart failure, pulmonary | | | | embolism, myocarditis, myocardial | | | | contusion, and renal failure. The | | | | diagnosis of myocardial infarction should | | | | be based on a combination of the patient's | | | | clinical presentation and the clinical | | | | laboratory test results (especially serial | | | | troponin levels).Critical Result called to | | | | and read back by Gifty Muller RN on | | | | 10/31/2017 at 17:18 by Kishor Armstrong. | | + + + + + + + | Specimen | Performing Laboratory | + + + | Blood | [facility] [address] | | | [place] [address] | + + + NM Nuclear Stress Test (Vasodilator) (10/31/2017 1306) + + + | Specimen | Performing Laboratory | + + + | | [facility] | + + + + + | Impressions | + + | 1. Regadenoson EKG is unrevealing. 2. High mortality risk study. | | 3. Large defect unchanged between rest and stress involving inferior and posterior | | segments froma base to apex as well as inferoseptal segments. No evidence of | | significant active myocardial ischemia. 4. Severely reduced left ventricular | | systolic function, ejection fraction 21% (LVEF probably underestimated by this | | technique due to low counts in inferior segments) Signed by: Susie Lancaster | | MD Ericka [facility] 10/31/2017, 13:09 | + + + + | Narrative | + + | NUCLEAR MEDICINE STRESS TEST REPORT Patient Name: Brenda | | Liliana Garay Study Date: 10/31/2017 Primary Care Provider: Deniz Rey, | | : 1930 Age: 87 y.o. Gender: male | | CLINICAL HISTORY/DIAGNOSIS: NSTEMI complicated by new onset CHF REGADENOSON | | SESTAMIBI STRESS TEST Indication: Risk stratify post NSTEMI with late presentation. | | Procedure: In the supine position, .4 mg of Regadenoson was infused intravenously | | over 10 seconds. Blood pressure and EKG were monitored every 1 minute. 5 mL of | | normal saline was utilized to flush the IV line. Twenty seconds later, 10.3 mCi | | sestamibi intravenous injection. SPECT myocardial perfusion imaging was acquired | | with wall motion analysis. Rest imaging was performed using 30.3 mCi Sestamibi | | intravenous injection. Repeated SPECT myocardial perfusion imaging was acquired | | with wall motion analysis. Hemodynamics: Heart rate baseline 80 beats per | | minute, peak 90 beats per minute. Abnormal EKG with RBBB, ST depression. Peak | | unchanged. Side Effects: None. Arrhythmia: None. Regadenoson Sestamibi | | Myocardial Perfusion Imaging Result: The Regadenoson Sestamibi tomographic | | images, reviewed without the attenuation compensation resolution, revealed a large, | | primarily fixed defect in the inferoapical, apical, mid and basilar inferior segment, | | apical, mid and basal posterior segments and the basilar and mid inferoseptal | | segments. Quantitative data: SSS = 19, SRS = 15 and a difference score of 4. | | These indicate high mortality risk but minimal active ischemia. Gated | | SPECT reveals severely reduced left ventricular systolic function. LVEF by gated SPECT | | is 21%. | + + Culture, MRSA (10/31/2017 0830) + + + + | Component | Value | Ref Range | + + + + | Culture | Negative for MRSA by chromogenic agar | | | | method | | + + + + + + + | Specimen | Performing Laboratory | + + + | Tissue - Trey | [facility] [address] | | | [place] [address] | + + + XR Chest AP Portable (10/31/2017 0754) + + | Narrative | + + | CLINICAL INFORMATION: CHF. COMPARISON: None available. FINDINGS: Portable | | frontal chest radiograph Lungs: Mild prominence of the central pulmonary | | vasculature with interstitial thickening, most notable in a perihilar | | distribution. Blunted left costophrenic angle suggesting tiny pleural | | effusion. No pneumothorax. Heart/mediastinum: Cardiac silhouette is of normal | | size. No mediastinal widening. Bones: No acute osseous abnormality appreciated. | | IMPRESSION - Findings are most consistent with mild pulmonary edema and small left | | pleural effusion. Dictated and Signed by: Neno Fields MD Electronically | | signed: 10/31/2017 8:43 AM | + + + + | Procedure Note | + + | Roberto, Rad Results In - 10/31/2017 0846 PDT | | CLINICAL INFORMATION: CHF. | | | | COMPARISON: None available. | | | | FINDINGS: | | Portable frontal chest radiograph | | | | Lungs: Mild prominence of the central pulmonary vasculature with interstitial | | thickening, most notable in a perihilar distribution. Blunted left costophrenic | | angle suggesting tiny pleural effusion. No pneumothorax. | | | | Heart/mediastinum: Cardiac silhouette is of normal size. No mediastinal | | widening. | | | | Bones: No acute osseous abnormality appreciated. | | | | IMPRESSION - Findings are most consistent with mild pulmonary edema and small | | left pleural effusion. | | | | Dictated and Signed by: Neno Fields MD | | Electronically signed: 10/31/2017 8:43 AM | + + ECG 12 lead (10/31/2017 0623)Only the most recent of 2 results within the time period is in cluded. + + + + | Component | Value | Ref Range | + + + + | VENTRICULAR RATE EKG | 77 | BPM | + + + + | ATRIAL RATE | 77 | BPM | + + + + | P-R INTERVAL | 146 | ms | + + + + | QRS DURATION | 136 | ms | + + + + | Q-T INTERVAL | 428 | ms | + + + + | Q-T INTERVAL | 484 | ms | | (CORRECTED) | | | + + + + | P WAVE AXIS | 37 | degrees | + + + + | QRS AXIS | 110 | degrees | + + + + | T AXIS | -46 | degrees | + + + + | INTERPRETATION TEXT | Sinus rhythm with occasional premature | | | | ventricular complexesRight bundle branch | | | | blockLeft posterior fascicular blockST | | | | depression in leads V3-6:consider | | | | ischemiaST & T wave abnormality, consider | | | | inferior ischemia Bifascicular block | | | | Abnormal ECGWhen compared with ECG of | | | | 30-APR-2018 06:22, (Unconfirmed)Left | | | | posterior fascicular block is now | | | | presentConfirmed by JOSE KHANNA MD ([id number]) | | | | on 10/31/2017 8:00:21 AM | | + + + + + + + | Specimen | Performing Laboratory | + + + | | [facility] | + + + Lipid Panel (10/31/2017 0406) + + + + | Component | Value | Ref Range | + + + + | Triglycerides | 76 | 35 - 160 mg/dL | + + + + | Cholesterol | 161 | 150 - 200 mg/dL | + + + + | HDL | 37Comment: New HDL Reference Range as | 28 - 83 mg/dL | | | of March 13, 2015 Values may be | | | | 10-20% lower with new, standardized method. | | | | | | | | | | + + + + | Chol/HDL Ratio | 4.4 | | + + + + | LDL, Calculated | 109 | <=130 mg/dL | + + + + + + + | Specimen | Performing Laboratory | + + + | Blood | [facility] [address] | | | [place] [address] | + + + Protime INR (10/31/2017 0406)Only the most recent of 2 results within the time period is in cluded. + + + + | Component | Value | Ref Range | + + + + | Protime | 17.4 (H) | 11.3 - 13.9 seconds | + + + + | INR | 1.43 (H)Comment: Usual Oral Anticoagulation | 0.90 - 1.10 | | | Range: 2.0 - 3.0High Level Oral | | | | Anticoagulation Range: 2.5 - 3.5 | | | |High Level Oral Anticoagulation Range: 2.5 - 3.5 | | + + + + + + + | Specimen | Performing Laboratory | + + + | Blood | [facility] [address] | | | [place] [address] | + + + CK-MB (10/30/20172308)Only the most recent of 2 results within the time period is included . + + + + | Component | Value | Ref Range | + + + + | CK-MB | 90.6 (H) | 0.6 - 6.3 ng/mL | + + + + + + + | Specimen | Performing Laboratory | + + + | Blood | [facility] [address] | | | [place] [address] | + + + ECHO Complete (10/30/20171934) + +-------+ + | Component | Value | Ref Range | + +-------+ + | LVEF-TTE | 35 | | | TRANSTHORACIC ECHO | | | + +-------+ + + + | Narrative | + + | Transthoracic Echocardiography Report (TTE) Demographics Patient Name | | TANISHA OREGON Room Number 452 | | [place] Patient Number [id number] Date of | | Study 10/30/2017 Visit Number [id number] | | Referring Physician AVE NUÑEZ | | Number Date of 1930 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 Procedure date | | Date: 10/30/2017Start: 07:04 PM Technical Quality: Good visualizationStudy Location: | | Portable Indications: Myocardial Infarction, NSTEMI 410.90/I21.4. Patient Status: | | STAT Height: 68 inchesWeight: 149 poundsBSA: 1.8 m^2BMI: 22.66 kg/m^2 Conclusions | | Summary Mild to moderate mitral regurgitation present. The left atrium is moderately | | dilated. LA pressure is elevated (by Doppler ratios) Left ventricular size appears to | | be mildly increased with an ejection fraction estimated at 30-35 %. Akinetic inferior | | and posterior basal blanca of left ventricle. Global hypokinesis of the left ventricle. | | Doppler flow profile suggests a pseudo-normal diastolic filling pattern. IVC is not | | well visualized but seems to be dilated with impaired inspiratory collapse consistent | | with elevated right atrial pressure. Signature | | | | | | 09:45 AM | | Findings Mitral Valve Mild to moderate mitral regurgitation present. Aortic Valve | | Diffuse thickening (sclerosis) of the aortic valve cusps without reduced excursion. | | Aortic valve appears trileaflet. Trace aortic regurgitation is noted. Tricuspid Valve | | Structurally normal tricuspid valve with trace regurgitation. Pulmonic Valve | | Structurally normal pulmonic valve with trace regurgitation. Left Atrium The left | | atrium is moderately dilated. LA pressure is elevated (by Doppler ratios) Left | | Ventricle Left ventricular size appears to be mildly increased with an ejection | | fraction estimated at 30-35 %. Akinetic inferior and posterior basal blanca of left | | ventricle. Global hypokinesis of the left ventricle. Doppler flow profile suggests a | | pseudo-normal diastolic filling pattern. Right Atrium Normal right atrial size. Right | | Ventricle Normal right ventricular size and function. Pericardial Effusion No | | evidence of pericardial effusion. Pleural Effusion No evidence of pleural effusion. | | Miscellaneous Aortic root dimension within normal limits. IVC is not well visualized | | but seems to be dilated with impaired inspiratory collapse consistent with elevated | | right atrial pressure. Valves Mitral Valve Peak E-Wave: 0.71 | | m/s RAMONA PISA: 0.15 cm^2 Peak A-Wave: 0.84 m/s | | Tissue Doppler Septal e' Velocity: 0.04 m/s Septal E/e' Ratio:17.76 | | Aortic Valve Tricuspid Valve TR Velocity: 3.08 m/s Structures Left | | Atrium LA A/P Dimension: 4.59 cm LA Area: 24.78 | | cm^2 LA Vol/BSA Index: 40 mL/m^2 LA Volume: 72.18 ml | | Left Ventricle Diastolic Dimension: 6.08 cm Systolic Dimension: | | 4.98 cm Septum Diastolic: 1.07 cm PW Diastolic: 0.96 cm EF [id number]% EF | | Calculated: 29% Miscellaneous Aorta Aortic Root: 3.48 cm Ascending | | Aorta: 3.57 cm | + + + + | Procedure Note | + + | Roberto, Rad Results In - 10/31/2017 0946 PDT Transthoracic Echocardiography Report (TTE) | | | | Demographics | | | | Patient Name TANISHA GUTIERREZ Room Number 452 | | [place] | | | | Patient Number [id number] Date of Study 10/30/2017 | | | | Visit Number [id number] | | | | Referring Physician AVE NUÑEZ | | Number | | | | Date of 1930 [employer] | | RDCS | | | | Age 87 year(s) 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 | | | | Procedure date | | Date: 10/30/2017Start: 07:04 PM | | | | Technical Quality: Good visualizationStudy Location: Portable | | Indications: Myocardial Infarction, NSTEMI 410.90/I21.4. | | Patient Status: STAT | | Height: 68 inchesWeight: 149 poundsBSA: 1.8 m^2BMI: 22.66 kg/m^2 | | | | Conclusions | | Summary | | Mild to moderate mitral regurgitation present. | | The left atrium is moderately dilated. | | LA pressure is elevated (by Doppler ratios) | | Left ventricular size appears to be mildly increased with an ejection | | fraction estimated at 30-35 %. | | Akinetic inferior and posterior basal blanca of left ventricle. | | Global hypokinesis of the left ventricle. | | Doppler flow profile suggests a pseudo-normal diastolic filling pattern. | | IVC is not well visualized but seems to be dilated with impaired inspiratory | | collapse consistent with elevated right atrial pressure. | | | | Signature | | | | Electronically signed by Virgie BARNETT MD(Interpreting physician) on | | 10/31/2017 09:45 AM | | | | | | Findings | | Mitral Valve | | Mild to moderate mitral regurgitation present. | | Aortic Valve | | Diffuse thickening (sclerosis) of the aortic valve cusps without reduced | | excursion. | | Aortic valve appears trileaflet. | | Trace aortic regurgitation is noted. | | Tricuspid Valve | | Structurally normal tricuspid valve with trace regurgitation. | | Pulmonic Valve | | Structurally normal pulmonic valve with trace regurgitation. | | Left Atrium | | The left atrium is moderately dilated. | | LA pressure is elevated (by Doppler ratios) | | Left Ventricle | | Left ventricular size appears to be mildly increased with an ejection | | fraction estimated at 30-35 %. | | Akinetic inferior and posterior basal blanca of left ventricle. | | Global hypokinesis of the left ventricle. | | Doppler flow profile suggests a pseudo-normal diastolic filling pattern. | | Right Atrium | | Normal right atrial size. | | Right Ventricle | | Normal right ventricular size and function. | | Pericardial Effusion | | No evidence of pericardial effusion. | | Pleural Effusion | | No evidence of pleural effusion. | | Miscellaneous | | Aortic root dimension within normal limits. | | IVC is not well visualized but seems to be dilated with impaired inspiratory | | collapse consistent with elevated right atrial pressure. | | | | Valves | | | | Mitral Valve | | | | Peak E-Wave: 0.71 m/s RAMONA PISA: 0.15 cm^2 | | Peak A-Wave: 0.84 m/s | | | | Tissue Doppler | | | | Septal e' Velocity: 0.04 m/s | | Septal E/e' Ratio:17.76 | | | | Aortic Valve | | | | Tricuspid Valve | | | | TR Velocity: 3.08 m/s | | | | Structures | | | | Left Atrium | | | | LA A/P Dimension: 4.59 cm LA Area: 24.78 cm^2 | | LA Vol/BSA Index: 40 mL/m^2 LA Volume: 72.18 ml | | | | Left Ventricle | | | | Diastolic Dimension: 6.08 cm Systolic Dimension: 4.98 cm | | Septum Diastolic: 1.07 cm | | PW Diastolic: 0.96 cm | | EF [id number]% | | EF Calculated: 29% | | | | Miscellaneous | | | | Aorta | | | | Aortic Root: 3.48 cm | | Ascending Aorta: 3.57 cm | + + Extra Lavender Top Tube (10/30/20171720)Only the most recent of 2 results within the time period is included. + +-------+ + | Component | Value | Ref Range | + +-------+ + | Extra Lavender Top | Done | | | Tube | | | + +-------+ + + + + | Specimen | Performing Laboratory | + + + | Blood | [facility] [address] | | | [place] [address] | + + + Extra Blue Top Tube (10/30/2017 2018) + +-------+ + | Component | Value | Ref Range | + +-------+ + | Extra Blue Top Tube | Done | | + +-------+ + + + + | Specimen | Performing Laboratory | + + + | Blood | [facility] [address] | | | [place] [address] | + + + Hemoglobin A1C (10/30/2017 1720) + +-------+ + | Component | Value | Ref Range | + +-------+ + | Hemoglobin A1c | 5.6 | 4.3 - 6.0 % | + +-------+ + | Estimated Average | 114 | mg/dL | | Glucose | | | + +-------+ + + + + | Specimen | Performing Laboratory | + + + | Blood | [facility] [address] | | | [place] [address] | + + + TSH (10/30/20171716) + + + + | Component | Value | Ref Range | + + + + | TSH | 3.05Comment: This is a third generation TSH | 0.45 - 5.33 uIU/mL | | | test. | | + + + + + + + | Specimen | Performing Laboratory | + + + | Blood | [facility] [address] | | | [place] [address] | + + + Hepatic Function Panel (10/30/2017 1717) + + + + | Component | Value | Ref Range | + + + + | Bilirubin Total | 2.0 (H) | 0.1 - 1.5 mg/dL | + + + + | Total protein | 6.4 | 6.0 - 7.8 g/dL | + + + + | ALBUMIN | 3.4 | 3.2 - 5.0 g/dL | + + + + | AST | 103 (H) | 10 - 42 U/L | + + + + | ALT | 31 | 6 - 45 U/L | + + + + | ALK PHOS | 84 | 40 - 110 U/L | + + + + | GLOBULIN | 3.0 | 2.1 - 3.8 g/dL | + + + + | Albumin/Globulin | 1.1 | 0.8 - 2.0 | | ratio | | | + + + + | Bilirubin, Direct | 0.40 (H) | 0.00 - 0.20 mg/dl | + + + + + + + | Specimen | Performing Laboratory | + + + | Blood | [facility] [address] | | | [place], [place] [address] | + + + from Last 3 Months Insurance + +--------+ +--------+ +---------+ | Payer | Benefi | Subscriber | Type | Phone | Address | | | t Plan | ID | | | | | | / | | | | | | | Group | | | | | + +--------+ +--------+ +---------+ | [employer] | VETERA | xxxxxxxxxx | Indemn | | | | | NS | | ity | | | | | CHOICE | | | | | + +--------+ +--------+ +---------+ | MEDICARE | MEDICA | xxxxxxxxxx | Medica | [phone] | | | | RE | | re | [phone] | | | | PART A | | | | | | | AND B | | | | | + +--------+ +--------+ +---------+ | AARP | AARP | xxxxxxxxxxx | Indemn | [phone] | | | | MDCR | | ity | [phone] | | | | SUPPL | | | | | + +--------+ +--------+ +---------+ + +--------+ +--------+ + + | Guarantor Name | Accoun | Relation to | Date | Phone | Billing Address | | | t Type | Patient | of | | | | | | | | | | + +--------+ +--------+ + + | BRENDA GARAY | Person | Self [birth year] Home: | [address] | | | al/Fam | | 1930 | [phone] | [place] [address] | | | ramon | | | [phone] | | + +--------+ +--------+ + +
--- OUTSIDE RECORDS SUMMARY | ~2017-11-03 | XMS | Encounter Summary ---
Demographics + + + | Address | [address] | | | [place] [address] | + + + | Home Phone | | + + + | Preferred Language | Unknown | + + + | Marital Status | | + + + | Muslim Affiliation | Unknown | + + + | Race | Unknown | + + + | Ethnic Group | Unknown | + + + Author + + + | Author | [facility] | | | and [place]had[place]ana | + + + | Organization | [facility] | | | and [place]had[place]ana | [...] Team Providers + +------+ + | Care Bellows Tester Name | Role | Phone | + +------+ + | Deniz Rey | PCP | | | MD | | | + +------+ + Encounter Details +--------+ + + + + | Date | Type | Department | Care Team | Description | +--------+ + + + + | 10/31/ | Orders Only | [facility] | Divya Mead, 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
--- OUTSIDE RECORDS SUMMARY | ~2017-11-03 | XMS | Clinical Summary ---
Demographics + + + | Address | [address] | | | [place] [address] | + + + | Home Phone | | + + + | Preferred Language | Unknown | + + + | Marital Status | Single | + + + | Temple Affiliation | Unknown | + + + | Race | Unknown | + + + | Ethnic Group | Other Race | + + + Author + + + | Author | [facility] | + + + | Organization | [facility] | + + + | Address | Unknown | + + + | Phone | Unavailable | + + + Care Team Providers + +------+ + | Care Pararescue Craftsman Name | Role | Phone | + +------+ + PP | Unavailable | + +------+ + Source Comments F[facility]AD is fully live on both [facility] and [facility] InPatient.[facility] Allergies Not on File Current Medications Not [...]
--- OUTSIDE RECORDS SUMMARY | ~2017-11-03 | XMS | Clinical Summary ---
Demographics + + + | Address | [address] | | | [place] [address] | + + + | Home Phone | | + + + | Preferred Language | Unknown | + + + | Marital Status | Single | + + + | Adventist Affiliation | Unknown | + + + | Race | Unknown | + + + | Ethnic Group | Other Race | + + + Author + + + | Author | [facility] | + + + | Organization | [facility] | + + + | Address | Unknown | + + + | Phone | Unavailable | + + + Care Team Providers + +------+ + | Care Planer Offbearer Name | Role | Phone | + +------+ + PP | Unavailable | + +------+ + Source Comments FUAD is fully live on both [facility] and [facility] InPatient.[facility] Allergies Not on File Current Medications Not [...]
--- OUTSIDE RECORDS SUMMARY | ~2017-11-03 | XMS | Encounter Summary ---
Demographics + + + | Address | [address] | | | [place] [address] | + + + | Home Phone | | + + + | Preferred Language | Unknown | + + + | Marital Status | | + + + | Congregational Affiliation | Unknown | + + + | Race | Unknown | + + + | Ethnic Group | Unknown | + + + Author + + + | Author | [facility] | | | and Khadarana | + + + | Organization | [facility] | | | and Khadarana | + + + | Address | Unknown | + + + | Phone | Unavailable | + + + Support + + +---------+ + | Name | Relationship | Address | Phone | + + +---------+ + | Eloise Garay | ECON | Unknown | | + + +---------+ + | Fuentes Garay | ECON | Unknown | | + + +---------+ + Care Team Providers + +------+ + | Care Burr Sander Name | Role | Phone | + +------+ + | Deniz Rey | PCP | | | MD | | | + +------+ + Reason for Visit Auth/Cert +--------+--------+ + + + + | Status | Reason | Specialty | Diagnoses / | Referred By | Referred To | | | | | Procedures | Contact | Contact | +--------+--------+ + + + + | | | | Diagnoses | | | | | | | new onset | | | | | | | CHF | | | +--------+--------+ + + + + Encounter Details +--------+ + + + + | Date | Type | Department | Care Team | Description | +--------+ + + + + | 10/30/ | Hospital | [facility] | Mary Lou Dorado MD | NSTEMI (non-ST | | 2018 - | Encounter | MED CTR ICU [address] | elevated myocardial | | | | [place], | [place], [place] | infarction) ([facility]); | | 11/02/ | | [place] [address] | [id number] | Essential | | 2017 | | [phone] | | hypertension; Acute | | | | | | on chronic | | | | | | congestive heart | | | | | | failure, unspecified | | | | | | heart failure type | | | | | | ([facility]); Acute on | | | | | | 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 | | | | | | diastolic congestive | | | | | | heart failure | | | | | | ([facility]); Acute | | | | | | systolic heart | | | | | | failure ([facility]) | +--------+ + + + + Social [...] + + + as of this encounter Last Filed Vital Signs + + + + | Vital Sign | Reading | Time Taken | + + + + | Blood Pressure | 132/66 | 11/02/2017 1100 PDT | + + + + | Pulse | 74 | 11/02/20171099 PDT | + + + + | Temperature | 36 C (96.8 F) | 11/02/20171099 PDT | + + + + | Respiratory Rate | 17 | 11/02/20171099 PDT | + + + + | Oxygen Saturation | 97% | 11/02/20171099 PDT | + + + + | Inhaled Oxygen | - | - | | Concentration | | | + + + + | Weight | 63.2 kg (139 lb 5.3 | 11/02/2017 0300 PDT | | | oz) | | + + + + | Height | 172.7 cm (5' 8") | 10/30/2017 1700 PDT | + + + + | Body Mass Index | 21.19 | 11/02/2017 0300 PDT | + + + + in this encounter Discharge Summaries Salty Cuevas MD - 11/02/2017 1439 PDTFormatting of this note may be different from the o dereck. [facility] DISCHARGE SUMMARY Pt. Name/Age/: Brenda Garay 87 y.o. 1930 Date of Admission: 10/30/2017 Date of Discharge: 11/02/2017 Admitting Physician: Mary Lou Dorado MD Primary Care Provider: Deniz Rey MD Discharging Physician: Salty Cuevas MD DISCHARGE DIAGNOSES: Active Hospital Problems Diagnosis NSTEMI (non-ST elevated myocardial infarction) Acute exacerbation of systolic CHF (congestive heart failure) obstructive uropathy with gross hematuria following catheter placement Essential hypertension Acquired hypothyroidism Resolved Hospital Problems Diagnosis No resolved problems to display. DISCHARGE MEDICATIONS: Discharge Medications New Medications Details aspirin 81 mg chewable tablet Notes to patient: For heart and to help prevent blood clots Take 1 tablet by mouth Daily. Start: 11/03/2017 atorvaSTATin 40 mg tablet Notes to patient: For cholesterol Take 1 tablet by mouth Daily. aka: LIPITOR furosemide 80 mg tablet Notes to patient: For fluid overload Take 1 tablet by mouth Daily. aka: LASIX metoprolol tartrate 25 mg tablet Notes to patient: For heart and blood pressure Take 0.5 tablets by mouth 2 times daily. aka: LOPRESSOR nitroglycerin 0.[address] 1 tablet under the tongue every 5 minutes as needed for Chest pain. aka: NITROSTAT potassium chloride 10 mEq CR tablet Notes to patient: To help replace potassium Take 1 tablet by mouth Daily. aka: KLOR-CON spironolactone 25 mg tablet Take 0.5 tablets by mouth Daily. aka: ALDACTONE Start: 11/03/2017 Changed Medications Details lisinopril 5 mg tablet Notes to patient: For heart and blood pressure Take 1 tablet by mouth 2 times daily. What changed: when to take this aka: PRINIVIL, ZESTRIL Unchanged Medications Details artificial tears ophthalmic solution Notes to patient: For dry eyes Place 1 drop into both eyes 4 times daily. aka: REFRESH TEARS REFRESH LIQUIGEL ophthalmic solution Generic drug: artificial tears Notes to patient: For dry eyes Place 1 drop into both eyes nightly. levothyroxine 88 mcg tablet Notes to patient: For thyroid Take 88 mcg by mouth every morning (before breakfast). aka: SYNTHROID PRESERVISION AREDS 2+MULTI VIT Caps Take 1 capsule by mouth 2 times daily. DISCHARGE INSTRUCTIONS: Follow-up Information Deniz Rey MD On 11/04/2017. Specialty: Family Medicine Why: Please check in at 9:50 am for an appt @ 10:00 am. Contact information: [address] [place] [id number] REFERENCE [facility] On 11/03/2017. Specialty: Lab Why: Please have lab work done on , 11/03 prior to appt on 11/04 with MD. This will al low your MD to have lab results for the appt. 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 Procedure date Date: 10/30/2017Start: 07:04 PM Technical Quality: Good visualizationStudy Location: Portable Indications: Myocardial Infarction, NSTEMI 410.90/I21.4. Patient Status: STAT Height: 68 inchesWeight: 149 poundsBSA: 1.8 m^2BMI: 22.66 kg/m^2 Conclusions Summary Mild to moderate mitral regurgitation present. The left atrium is moderately dilated. LA pressure is elevated (by Doppler ratios) Left ventricular size appears to be mildly increased with an ejection fraction estimated at 30-35 %. Akinetic inferior and posterior basal blanca of left ventricle. Global hypokinesis of the left ventricle. Doppler flow profile suggests a pseudo-normal diastolic filling pattern. IVC is not well visualized but seems to be dilated with impaired inspiratory collapse consistent with elevated right atrial pressure. Signature Findings Mitral Valve Mild to moderate mitral regurgitation present. Aortic Valve Diffuse thickening (sclerosis) of the aortic valve cusps without reduced excursion. Aortic valve appears trileaflet. Trace aortic regurgitation is noted. Tricuspid Valve Structurally normal tricuspid valve with trace regurgitation. Pulmonic Valve Structurally normal pulmonic valve with trace regurgitation. Left Atrium The left atrium is moderately dilated. LA pressure is elevated (by Doppler ratios) Left Ventricle Left ventricular size appears to be mildly increased with an ejection fraction estimated at 30-35 %. Akinetic inferior and posterior basal blanca of left ventricle. Global hypokinesis of the left ventricle. Doppler flow profile suggests a pseudo-normal diastolic filling pattern. Right Atrium Normal right atrial size. Right Ventricle Normal right ventricular size and function. Pericardial Effusion No evidence of pericardial effusion. Pleural Effusion No evidence of pleural effusion. Miscellaneous Aortic root dimension within normal limits. IVC is not well visualized but seems to be dilated with impaired inspiratory collapse consistent with elevated right atrial pressure. Valves Mitral Valve Peak E-Wave: 0.71 m/s RAMONA PISA: 0.15 cm^2 Peak A-Wave: 0.84 m/s Tissue Doppler Septal e' Velocity: 0.04 m/s Septal E/e' Ratio:17.76 Aortic Valve Tricuspid Valve TR Velocity: 3.08 m/s Structures Left Atrium LA A/P Dimension: 4.59 cm LA Area: 24.78 cm^2 LA Vol/BSA Index: 40 mL/m^2 LA Volume: 72.18 ml Left Ventricle Diastolic Dimension: 6.08 cm Systolic Dimension: 4.98 cm Septum Diastolic: 1.07 cm PW Diastolic: 0.96 cm EF [id number]% EF Calculated: 29% Miscellaneous Aorta Aortic Root: 3.48 cm Ascending Aorta: 3.57 cm External Result Report Final Impression/Recommendation NUCLEAR MEDICINE STRESS TEST REPORT Patient Name: Brenda Garay Study Date: 10/31/2017 Primary Care Provider: Deniz Rey MD : 1930 Age: 87 y.o. Gender: male CLINICAL HISTORY/DIAGNOSIS: NSTEMI complicated by new onset CHF REGADENOSON SESTAMIBI STRESS TEST Indication: Risk stratify post NSTEMI with late presentation. Procedure: In the supine position, .4 mg of Regadenoson was infused intravenously over 10 seconds. Bl ood pressure and EKG were monitored every 1 minute. 5 mL of normal saline was utilized to f lush the IV line. Twenty seconds later, 10.3 mCi sestamibi intravenous injection. SPECT my ocardial perfusion imaging was acquired with wall motion analysis. Rest imaging was perform ed using 30.3 mCi Sestamibi intravenous injection. Repeated SPECT myocardial perfusion imag ing was acquired with wall motion analysis. Hemodynamics: Heart rate baseline 80 beats per minute, peak 90 beats per minute. Abnormal EKG with RBBB, ST depression. Peak unchanged. Side Effects: None. Arrhythmia: None. Regadenoson Sestamibi Myocardial Perfusion Imaging Result: The Regadenoson Sestamibi tomographic images, reviewed without the attenuation compensatio n resolution, revealed a large, primarily fixed defect in the inferoapical, apical, mid and basilar inferior segment, apical, mid and basal posterior segments and the basilar and mid i nferoseptal segments. Quantitative data: SSS = 19, SRS = 15 and a difference score of 4. These indicate high m ortality risk but minimal active ischemia. Gated SPECT reveals severely reduced left ventricular systolic function. LVEF by gated SPE CT is 21%. IMPRESSION: 1. Regadenoson EKG is unrevealing. 2. High mortality risk study. 3. Large defect unchanged between rest and stress involving inferior and posterior segment s froma base to apex as well as inferoseptal segments. No evidence of significant active my ocardial ischemia. 4. Severely reduced left ventricular systolic function, ejection fraction 21% (LVEF probab ly underestimated by this technique due to low counts in inferior segments) Signed by: Susie Barnett MD [facility] 10/31/2017, 13:09 Results for BRENDA GARAY ( ) as of 11/02/2017 19:48 Ref. Range 11/02/2017 04:46 NA Latest Ref Range: 136 - 149 mmol/L 144 K Latest Ref Range: 3.5 - 5.1 mmol/L 3.5 Chloride Latest Ref Range: 98 - 109 mmol/L 105 Carbon dioxide Latest Ref Range: 24 - 31 mmol/L 30 ANION GAP Latest Ref Range: 3 - 16 mmol/L 9 GLUCOSE Latest Ref Range: 70 - 109 mg/dL 116 (H) BUN Latest Ref Range: 7 - 18 mg/dL 35 (H) Creatinine Latest Ref Range: 0.60 - 1.30 mg/dL 1.59 (H) BUN/CREA Unknown 22.0 EGFR IF NOT Latest Ref Range: >=60 mL/min/1.73m2 41 (L) Calcium Latest Ref Range: 8.3 - 10.5 mg/dL 8.2 (L) Results for BRENDA GARAY ( ) as of 11/02/2017 19:48 Ref. Range 10/31/2017 08:27 10/31/2017 16:13 11/01/2017 04:14 B-TYPE NATRIURETIC PEPTIDE Latest Ref Range: <100 pg/mL 3,943 (H) 2,668 (H) Troponin I Latest Ref Range: <0.06 ng/mL 36.55 (HH) Results for BRENDA GARAY ( ) as of 11/02/2017 19:48 Ref. Range 10/30/2017 17:17 10/30/2017 17:20 10/30/2017 23:09 10/31/2017 04:06 10/31/2017 08:27 10/31/2017 16:13 Troponin I Latest Ref Range: <0.06 ng/mL 21.67 (HH) 42.90 (HH) 36.55 (HH) Results for BRENDA GARAY ( ) as of 11/02/2017 19:48 Ref. Range 11/02/2017 04:46 WBC Latest Ref Range: 4.0 - 11.0 K/uL 8.1 RBC COUNT Latest Ref Range: 4.30 - 5.70 M/uL 3.97 (L) Hgb Latest Ref Range: 13.5 - 18.0 g/dL 11.5 (L) Hct, Final Latest Ref Range: 40.0 - 51.0 % 35.3 (L) MCV Latest Ref Range: 83.0 - 101.0 fL 88.9 MCH Latest Ref Range: 28.0 - 35.0 pg 28.9 MCHC Latest Ref Range: 32.0 - 36.0 g/dL 32.5 RDW-CV Latest Ref Range: <15.0 % 13.9 Platelet Count Latest Ref Range: 140 - 440 K/uL 174 HOSPITAL COURSE: Please refer to the H&P for full details. In short this 87-year-old male presented with sh ortness of breath to the emergency room at [facility] and was found to be in CHF with a e levated troponin. He denied a history of chest pain beginning of a one-week history of wors ening dyspnea. Patient was admitted and seen by interventional cardiology and not felt to be a good candid ate for conventional approach and underwent stress testing which showed significant injury t o his heart without evidence of significant reversibility. Discussion between the patient a nd cardiology ensued and it was elected to treat him conservatively. He was diuresed with furosemide 40 mg IV twice daily and had progressive improvement with h is chest x-ray appearance improving and the patient comfortable on room air both when laying supine sleeping and up and mobile. Radiographically he continued to have a wet appearance reported that his with Alzheimer's disease acquired him to be at home order to help wit h her both from a functional standpoint and behaviorally. He thus requested early discharge . I did advise patient that he typically would require 1-2 more days of IV diuresis but in lieu of of his concerns I did agree to discharge. The patient previously had been on lisino pril 5 mg daily will be discharged on furosemide 80 mg once daily with Spironolactone 12.5 m g daily and potassium chloride 10 mEq daily. He had lisinopril increased from 5 mg daily to 5 mg twice daily. He still has mild heart failure I did not adjust the patient's beta-bloc aziza but should he do well on this regimen would consider once resolution of pulmonary edema to convert to carvedilol. Otherwise I did discuss with the patient that he is on a number of agents that can alter potassium levels. His potassium this hospitalization ranged from 3 .4-3.6 and thus I believe the use of lisinopril, Aldactone, furosemide, with potassium suppl ements as warranted. I advised him I would recommend weekly potassium checks initially to clint pimentel sure he does not become hyperkalemic and given his significant elevation in BNP this cou ld also be followed relative to his heart failure. Did advise him given that he is going ho me early that I would feel that appropriate follow-up should be started this coming Tuesday t o assess renal function and potassium and then weekly until he is clinically stable. We dis cussed the issue of potassium on his multiple drug regimen and discuss the symptoms of heart failure including orthopnea and exertional dyspnea and his need to have medication adjustme nts early should the symptoms become problematic. He is scheduled with his PCP, Dr. Rey this Tuesday with appointment given at discharge. Patient has a pending urine culture which at 24 hours is no growth and had a post void resi dual of 30 cc following catheter removal prior to discharge. PHYSICAL EXAM: Temp: 36 C (96.8 F), Pulse: 74, Resp: 17, BP: 132/66, SpO2 97 % on room air at flow rat e 2L/min Temp Min: 35.9 C (96.6 F) Max: 36.8 C (98.2 F) Weight: 67.9 kg (149 lb 11.1 oz) Patient seen and examined by me on discharge day Greater than 30 minutes were spent on discharge and coordination of post-hospital care. Electronically signed by: Salty Cuevas MD, 11/02/2017 14:39 [facility] Portions of this chart may have been created with [employer] voice recognition software. Occasi onal wrong-word or sound-alike substitutions may have occurred due to the inherent blake itations of voice recognition software. Please read the chart carefully and recognize, using context, where these substitutions have occurredin this encounter Discharge Instructions Peter Dorado, Fermin - 11/02/2017Formatting of this note may be different from the belindaa l. Discharge Instructions for Heart Attack You have had a heart attack (acute myocardial infarction). A heart attack occurs when a ves blayne that sends blood to your heart suddenly becomes blocked. This causes your heart not to w ork as well as it should. Follow these guidelines for home care and lifestyle changes. Home care Take your medicines exactly as directed. Don t skip doses. Talk with your healthcare p mary if your medicines aren't working for you. Together you can come up with another kamilah tment plan. Remember that recovery after a heart attack takes time. Plan to rest for at least 4 to 8 weeks while you recover. Then return to normal activity when your doctor says it s OK. Ask your doctor about joining a heart rehabilitation program. This can help strengthen y our heart and lungs and give you more energy and confidence. Tell your doctor if you are feeling depressed. Feelings of sadness are common after a he art attack. But it is important to speak to someone or seek counselingif you are feeling o verwhelmed by these feelings. Call 911 right away if youhavechest pain or pain that goes to your shoulder, neck, o r back.Don't drive yourself to the hospital. Ask your family members to learn CPR. This is an important skill that can save lives whe n it's needed. Learn to take your own blood pressure and pulse. Keep a record of your results. Ask your doctor when you should seek emergency medical attention. He or she will tell you which bloo d pressure reading is dangerous. Lifestyle changes Your heart attack might have been caused by cardiovascular disease. Your healthcare provide r will work with you to make changes to your lifestyle. This will help the heart disease fro m getting worse. These changes will most likely be a combination of diet and exercise. Diet Your healthcare provider will tell you what changes you need to make to your diet. You may need to see a registered dietitian for help with these diet changes. These changes may inclu de: Cutting back on how much fat and cholesterol you eat Cutting back on how much salt (sodium) you eat, especially if you have high blood pressu re Eating more fresh vegetables and fruits Eating lean proteins such as fish, poultry, beans, and peas, and eating less red meat an d processed meats Using low-fat dairy products Using vegetable and nut oils in limited amounts Limiting how many sweets and processed foods such as chips, cookies, and baked goods you eat Limiting how often you eat out. And when you do eat out, making better food choices. Not eating fried or greasy foods, or foods high in saturated fat Exercise Your healthcare provider may tell you to get more exercise if you haven't been physically a ctive. Depending on your case, your provider may recommend that you get moderate to vigorous physical activity for at least 40 minutes each day, and for at least 3 to 4 days each week. A few examples of moderate to vigorous activity include: Walking at a brisk pace, about 3 to 4 miles per hour Jogging or running Swimming or water aerobics Hiking Dancing Martial arts Tennis Riding a bicycle or stationary bike Other changes Your healthcare provider may also recommend that you: Lose weight. If youare overweight or obese, your provider will work with you to lose e xtra pounds. Making diet changes and getting more exercise can help. A good goal is to lose your 10% of your body weight in one year. Stop smoking. Sign up for a stop-smoking program to make it more likely for you to quit for good. You can join a stop-smoking support group. Or ask your doctor about nicotine repla cement products. Learn to manage stress. Stress management techniques to help you deal with stress in you r home and work life. This will help you feel better emotionally and ease the strain on your heart. Follow-up Make a follow-up appointment as directed. Call 911 Call 911 right awayif you have: Chest pain that goes to your neck, jaw, back, or shoulder Shortness of breath When to call your healthcare provider Callyour healthcare provider right away if you have: Lightheadedness, dizziness, or fainting Feeling of irregular heartbeat or fast pulse Date Last Reviewed: 04/03/201619990752-5044 [facility]. [address] [place] [address]. All righ ts reserved. This information is not intended as a substitute for professional medical care. Always follow your healthcare professional's instructions. Left- or Right- Side Congestive Heart Failure (CHF) The heart is a large muscle. It is a pumpthatcirculates blood throughout the body. Bloo d carries oxygen to all of the organs, including the brain,muscles, and skin.After your body takes the oxygen out of the blood, the blood returns to the heart. The right side of th e heart collectsthe blood from the bodyand pumps it to the lungs. In the lungs, it gets fresh oxygen and gives up carbon dioxide. The oxygen-rich blood from the lungs then returns to the left side of the heart, where it ispumped backout to the rest of your body, start ing the process all over. Congestive heart failure (CHF) occurs when the heart muscle is weakened. This affects the p umping action of the heart. Heart failure can affect the right side of the heart or the left side. But heart failuremay affect not only the right side of the heart or only the left s arleth. Although it may have started on one side, it can and often eventually does affect both sides. Right-side heart failure When the right side of the heart is weakened, it can t handle the blood it is getting fro m the rest of the body. This blood returns to the heart through veins. When too much pressur e builds up in the veins,fluid leaks out into the tissues. [place] then causesthat fluid to move to those parts of the body that are the lowest. So one of the first symptoms of rig ht-side CHF can include swelling in the feet and ankles. If the condition gets worse, the sw elling can even go up past the knees. Sometimes it gets so severe, the liver can get congest ed as well. Left-side heart failure When the left side of the heart is weakened, it can t handle the blood it gets from the l ungs. Pressure then builds up in the veins of the lungs, causing fluid to leak into the lung tissues. This may cause CHF and pulmonary edema. This causes you to feel short of breath, weak, or dizzy. These symptoms are often worse with exertion, such as when climbing stairs o r walking up hills. Lying with your head flat is uncomfortable and can make your breathing w orse.This may make sleeping difficult. You may need to use extra pillows to elevate your u pper bodyto sleep well. The same is true when just resting during the daytime. There are many causes of heart failure including: Coronary artery disease Past heart attack(also known as acute myocardial infarction, or AMI) High blood pressure Damaged heart valve Diabetes Obesity Cigarette smoking Alcohol abuse Heart failure is a chronic condition. There is no cure. The purpose of medical treatment is to improve the pumping action of the heart. The main way to do this is toremove excess wa ter from the body. A number of medicines can help reach this goal,improvesymptoms, and p revent the heart from becoming weaker. Sometimes, heart failure can become so severe that a device is placed in the heartto help with pumping. Another major goal is to better treat t he causes of heart failure, such as diabetesand high blood pressure, by making changes in your lifestyle and maximizing medical control when needed. Home care Follow these guidelines when caring for yourself at home: Check your weight every day. This is very important because a sudden increase in weight gain could mean worsening heart failure. Keep these things in mind: Use the same scale every day. Weigh yourself at the same time every day. Make sure the scale is jericho hard floor surface, not on a rug or carpet. Keep a record of your weight every day so your healthcare provider can see it. If you ar e not given a log sheet for this, keep a separate journal for this purpose. Cut back on the amount of salt(sodium) you eat. Follow your healthcare provider's luma mmendation on how much salt or sodium you should have each day. Avoid high-salt foods. These include olives, pickles, smoked meats,salted potato chips , and most prepared foods. Don't add salt to your food at the table. Use only small amounts of salt when cooking. Read the labels carefully on food packages to learn how much salt or sodium is in each s erving in the package. Remember, a can or package of food may contain more than 1 serving. S o if you eat all the food in the package, you may be getting more salt than you think. Follow your healthcare provider'srecommendations about how much fluid you should have. Be aware that some foods, such as soup, pudding, and juicy fruits like oranges or melons, c ontain liquid. You'll need to count the liquid in those foods as part of your daily fluid in take. Your provider can help you with this. Stop smoking. Cut back on how much alcohol you drink. Lose weight if you are overweight. The excess weight adds a lot of stress on the workloa d of the heart. Stay active. Talk with your provider about an exercise program that is safe for your hea rt. Keep your feet elevated to reduce swelling. Ask your provider about support hose as a pr eventive treatment for daytime leg swelling. Besides taking your medicine as instructed, an important part of treatment is lifestyle joaquim nges. These include diet, physical activity, stopping smoking, and weight control. Improve your diet by includingmore fresh foods, cutting back on how much sugar and satura jose fat you eat,and eating fewer processed foods and less salt. Follow-up care Follow up with your healthcare provider, or as advised. Make sure to keep any appointments that were made for you. These can help better control yo ur congestive heart failure. You will need to follow up with your provider on a routine basi s to make sure your heart failure is well managed. If an X-ray, ECG, or other tests were done, you will be told of any new findings that may a ffect your care. Call 911 Call 911 if you: Become severely short of breath Feel lightheaded, or feel like you might pass out or faint Have chest pain or discomfort that is different than usual, the medicines your doctor to ld you to use for this don't help, or the pain lasts longer than 10 to 15 minutes You suddenly develop a rapid heart rate When to seek medical advice The following may besigns that your heart failure is getting worse. Call your healthcare provider right away if any of these happen: Sudden weight gain. This means 3or more pounds in one day, or5or more pounds in1 week. Trouble breathing not related to being active New or increased swelling of your legs or ankles Swelling or pain in your abdomen Breathing trouble at night. This means waking up short of breath orneeding more pillow s to breathe. Frequent coughing that doesn t go away Feeling much more tired than usual Date Last Reviewed: 07/07/201519993160-0238 [facility]. [address] [place] [address]. All righ ts reserved. This information is not intended as a substitute for professional medical care. Always follow your healthcare professional's instructions. in this encounter Medications at Time of Discharge + + +--------+---------+ + + | Medication | Sig. | Disp. | Refills | Start | End Date | | | | | | Date | | + + +--------+---------+ + + | artificial tears | Place 1 drop into | | | | | | (REFRESH LIQUIGEL) | both eyes nightly. | | | | | | ophthalmic solution | | | | | | + + +--------+---------+ + + | artificial tears | Place 1 drop into | | | | | | (REFRESH TEARS) | both eyes 4 times | | | | | | ophthalmic solution | daily. | | | | | + + +--------+---------+ + + | aspirin 81 mg | Take 1 tablet by | 30 | | 11/04/19 | | | chewable tablet | mouth Daily. | tablet | | 18 | | + + +--------+---------+ + + | atorvaSTATin | Take 1 tablet by | 30 | 0 | 11/03/19 | | | (LIPITOR) 40 mg | mouth Daily. | tablet | | 18 | | | tablet | | | | | | + + +--------+---------+ + + | furosemide (LASIX) | Take 1 tablet by | 50 | 0 | 11/03/19 | | | 80 mg tablet | mouth Daily. | tablet | | 18 | | + + +--------+---------+ + + | levothyroxine | Take 88 mcg by mouth | | | | | | (SYNTHROID) 88 mcg | every morning | | | | | | tablet | (before breakfast). | | | | | + + +--------+---------+ + + | lisinopril | Take 1 tablet by | 60 | 0 | 11/03/19 | | | (PRINIVIL, ZESTRIL) | mouth 2 times daily. | tablet | | 18 | | | 5 mg tablet | | | | | | + + +--------+---------+ + + | metoprolol | Take 0.5 tablets by | 30 | 0 | 11/03/19 | | | tartrate (LOPRESSOR) | mouth 2 times daily. | tablet | | 18 | | | 25 mg tablet | | | | | | + + +--------+---------+ + + | Multiple | Take 1 capsule by | | | | | | Vitamins-Minerals | mouth 2 times daily. | | | | | | (PRESERVISION AREDS | | | | | | | 2+MULTI VIT) CAPS | | | | | | + + +--------+---------+ + + | nitroglycerin | Place 1 tablet under | 25 | 0 | 20 | | | (NITROSTAT) 0.4 mg | the tongue every 5 | tablet | | 18 | | | SL tablet | minutes as needed | | | | | | | for Chest pain. | | | | | + + +--------+---------+ + + | potassium chloride | Take 1 tablet by | 30 | 0 | 20 | | | (KLOR-CON) 10 mEq | mouth Daily. | tablet | | 18 | | | CR tablet | | | | | | + + +--------+---------+ + + | spironolactone | Take 0.5 tablets by | 30 | 0 | 11/04/19 | | | (ALDACTONE) 25 mg | mouth Daily. | tablet | | 18 | | | tablet | | | | | | + + +--------+---------+ + + as of this encounter Progress Notes Peter Dorado PharmD - 11/02/2017 1298 PDTHarvey Balta Garay was admitted for NSTEMI and CHF and discharged home today (11/02/2017) Taught AVS education to patient. Education was focused on new medications and/or changed me dications. I explained indication, how to take, possible side effects, when to contact physi dima, and monitor parameters. The patient was reminded of follow-up appointment with PCP. The patient verbalized understanding of the above and all questions were answered. Pharmaci st will follow-up with patient in one to two business days. Patient was provided with a luma nciled discharge medication list as part of their AVS instructions. Encouraged patient to sh are medication list with healthcare providers and keep list current. Peter Dorado, Fermin 11/02/2017 14:58 Kingsley Barnett MD - 11/01/2017 1442 PDTCardiology He slept well overnight and appears to be well rested. He has had no chest pain. He had n o orthopnea or PND. Physical exam is essentially unchanged from yesterday. Neck veins are slightly distended. He has some basilar rales. I hear no gallops or murmur s. Peripheral edema is mild and unchanged. I discussed with him and his the perfusion findings and his outlook. In younger patie nts a surgical revascularization approach for his degree of left ventricular dysfunction is a reasonable option. For patients of his age there are scant data. He is considering his o ptions. Salty Rodney MD - 11/01/2017 0830 PDTFormatting of this note may be dif ferent from the original. [facility] Hospitalist Progress Note Brenda Garay is a 87 y.o. male ASSESSMENT and PLAN: Active Hospital Problems Acute exacerbation of CHF (congestive heart failure) Patient on room air with minimal crackles in the lung bases. Will initiate low-dose lisino pril 2.5 mg twice daily and spironolactone at 12.5 mg twice daily. Increase activity as ashley erated. *NSTEMI (non-ST elevated myocardial infarction) No chest pain. Heart rate control is good. Will treat heart failure, currently. Cardiolo gy following. Hematuria Patient had a catheter placed on admission and has had gross hematuria since then. There a re clots in the urine. Will culture urine and ask nursing to irrigate this out. If urine d oes not clear will need CBI. SUBJECTIVE: Patient denies chest pain. Shortness of breath is improving. Currently no nausea or oth er complaints. VITALS: Temp: 36.9 C (98.4 F), Pulse: 68, Resp: 23, BP: 122/72, SpO2 92 % on room air at flow r ate 2L/min Temp Min: 36.5 C (97.7 F) Max: 37.1 C (98.8 F) Weight: 67.9 kg (149 lb 11.1 oz) Intake/Output Summary (Last 24 hours) at 11/01/17 0830 Last data filed at 11/01/17 0600 Gross per 24 hour Intake 480 ml Output 2350 ml Net -1870 ml PHYSICAL EXAM: Cardiovascular: Regular rate and rhythm Respiratory: Diminished breath sounds in the left base with few right basilar crackles Abdomen: Soft without tenderness Extremities: without edema Gross hematuria with some clots present in catheter tubing. DIAGNOSTIC STUDIES: Available data and images were reviewed personally. Significant results and findings are a ddressed here or in the Assessment and Plan. Lab Results Component Value Date HGB 11.5 (L) 11/01/2017 HCT 35.5 (L) 11/01/2017 PLT 162 11/01/2017 WBC 9.3 11/01/2017 Lab Results Component Value Date NA 142 11/01/2017 K 3.4 (L) 11/01/2017 CL 108 11/01/2017 CO2 27 11/01/2017 CREA 1.50 (H) 11/01/2017 BUN 32 (H) 11/01/2017 MG 2.0 11/01/2017 PHOS 2.6 11/01/2017 BNP 2,668 (H) 11/01/2017 No results found for: POCGLU No results found for: POCGLU Xr Chest Ap Portable Result Date: 10/31/2017 CLINICAL INFORMATION: CHF. COMPARISON: None available. FINDINGS: Portable frontal chest rad iograph Lungs: Mild prominence of the central pulmonary vasculature with interstitial thicke zi, most notable in a perihilar distribution. Blunted left costophrenic angle suggesting tiny pleural effusion. No pneumothorax. Heart/mediastinum: Cardiac silhouette is of normal size. No mediastinal widening. Bones: No acute osseous abnormality appreciated. IMPRESSION - Findings are most consistent with mild pulmonary edema and small left pleural effusion. Dic tated and Signed by: Neno Fields MD Electronically signed: 10/31/2017 8:43 AM Total time of approximately 25 minutes was spent with the patient and/or patient's family, and/or on the patient's floor/unit, of which more than 50% was spent counseling and/or coord ination the patient's care as outlined above. Salty Cuevas 11/01/2017 8:30 [facility] Portions of this chart may have been created with [employer] voice recognition software. Occasi onal wrong-word or sound-alike substitutions may have occurred due to the inherent blake itations of voice recognition software. Please read the chart carefully and recognize, using context, where these substitutions have occurred Kalli Duval, PharmD - 10/31/2017 1259 PDTFormatting of this note may be different from the original. PHARMACY SERVICES: ADMISSION MEDICATION REVIEW Brenda Garay is a 87 y.o. male admitted on 10/30/17. Patient is a reliable historian. 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 Taking Historical ProviderMD artificial tears (REFRESH TEARS) ophthalmic solution Place 1 drop into both eyes 4 times d aily. Taking Historical ProviderMD levothyroxine (SYNTHROID) 88 mcg tablet Take 88 mcg by mouth every morning (before break st). Taking Historical MD Gavin lisinopril (PRINIVIL, ZESTRIL) 5 mg tablet Take 5 mg by mouth Daily. Taking Historical Pr MD marlen Multiple Vitamins-Minerals (PRESERVISION AREDS 2+MULTI VIT) CAPS Take 1 capsule by mouth 2 times daily. Taking Historical MD Gavin Medication review performed and electronically signed by Debra Bobby, Keyboard Teacher 2017 12:16 Reviewed by Kalli Duval, PharmD 10/31/2017 12:57 Kingsley Barnett MD - 10/31/2017 0915 PDTFormatting of this note may be different from t he original. PATIENT NAME: Brenda Garay : 1930: AGE: 87 y.o. ADMISSION DATE: 10/30/2017 HOSPITAL DAY NUMBER: 1 PRIMARY CARE: Deniz Rey MD CONSULTING PROVIDER: Kingsley Barnett MD CARDIOLOGY PROGRESS NOTE DATE OF SERVICE: 10/31/17 SUBJECTIVE: He had a comfortable night without dyspnea or chest discomfort. He feels ok and offers no complaints. OBJECTIVE: PHYSICAL EXAM Latest VS: BP 104/66 | Pulse 74 | Temp 37 C (98.6 F) (Oral) | Resp 23 | Ht 1.727 m (5' 8") | Wt 68.7 kg (151 lb 7.3 oz) | SpO2 94% | BMI 23.03 kg/m General No acute distress. Comfortable in bed. Chest Effort and pattern are normal. Chest was is not tender. Breath sounds normal. No wheezes or rales present Cardiovascular CVP by exam: 10 Murmurs rubs or gallops: None Pulses unchanged. Edema: none Gastrointestinal Abdomen: soft, not tender. Mental Status/Neurological Orientation, affect and mood: Appropriate. LABS Troponin I: 22 > 43 Chol; 161, LDL: 109 HDL: 37 K still low, 3.4 Creatinine 1.6, eGFR42 CARDIAC: ECG: Same. Still with sinus rhythm, RBBB, ST depression max in V4-6 of ~2 mm Perfusion scan with large inferior and posterior defects at rest and stress without signi ficant active myocardial ischemia. LVEF by that technique was 21% but this is inaccurate an d low. ASSESSMENT: Cardiovascular: Moderate sized OR Acute systolic heart failure There are not much data about improving LV systolic function with coronary stenting in th e absence of extensive ischemia by non-invasive testing. CABG surgery has shown benefit in ischemic cardiomyopathy in this setting, however. Generally speaking, data show no mortalit y benefit from coronary stenting without extensive ischemia defined by a summed difference s core >7 or difference in "extent of defect" of >7. His summed difference score was 4. He m eets none of these criteria for mortality benefit. In terms of symptoms, he has no angina a nd angioplasty/stenting helps only with anginal symptoms, not with heart failure symptoms as far as I know. PLAN or RECOMMENDATIONS: 1. Will discuss with patient and family about how to proceed. Electronically signed by: Kingsley Barnett MD 10/31/2017 9:15 Tonny Hardy MD - 10/31/2017 0721 PDTFormatting of this note may be different from the original. [place], [place] HOSPITALIST PROGRESS NOTE Patient: Brenda Garay : 1930: Age: 87 y.o. MedRec: [id number] PCP: Denzi Rey MD Admission date: 10/30/2017 Hospital day # : 1 Physician author: Tonny Hardy MD Today: 10/31/2017 Allergies: No Known Allergies Current Medications: Current Facility-Administered Medications Medication Dose Route Frequency Provider Last Rate Last Dose acetaminophen (TYLENOL) tablet 650 mg 650 mg Oral Q4H PRN Mary Lou Dorado MD aspirin chewable tablet 81 mg 81 mg Oral Daily Mary Lou Dorado MD 81 mg at 10/30/17 173 4 atorvaSTATin (LIPITOR) tablet 40 mg 40 mg Oral Daily Mary Lou Dorado MD 40 mg at 2112 enoxaparin (LOVENOX) 60 mg/0.6 mL injection 60 mg 1 mg/kg Subcutaneous 2 times per day Mary Lou Dorado MD 60 mg at 10/30/171953 furosemide (LASIX) injection 20 mg 20 mg Intravenous BID (8 and 16) Mary Lou Dorado MD 20 mg at 10/30/17 1734 lidocaine (XYLOCAINE) 2% jelly (uro-jet) Urethral PRN Mary Lou Dorado MD melatonin tablet 3 mg 3 mg Oral Nightly PRN Mary Lou Dorado MD metoprolol tartrate (LOPRESSOR) tablet 12.5 mg 12.5 mg Oral BID Kingsley Barnett MD nitroglycerin (NITROSTAT) SL tablet 0.4 mg 0.4 mg Sublingual Q5 Min PRN Clint Emanuel Current Infusions: Objective Data Hematology and anemia Recent Labs Lab 10/31/17 0406 10/30/17 1721 WBC 10.2 12.9* HGB 11.8* 11.9* HCT 36.0* 37.2* PLT 148 154 Recent Labs Lab 10/31/17 0406 10/30/17 1720 PROTIME 17.4* 17.2* INR 1.43* 1.41* Recent Labs Lab 10/30/17 1717 TSH 3.05 Inflammatory markers No results for input(s): LACTATE, PROCALCITONI, CRP, ESR in the last 168 hours. Chemistry Recent Labs Lab 10/31/17 0406 10/30/17 1717 GLU 115* 135* NA 141 140 K 3.4* 3.4* CL 108 109 CO2 24 23* ANIONGAP 9 8 BUN 34* 31* CREA 1.58* 1.69* GFRNONAA 42* 39* CALCIUM 8.2* 8.5 ALBUMIN -- 3.4 TOTALPROTEIN -- 6.4 BILITOT -- 2.0* ALKPHOS -- 84 ALT -- 31 AST -- 103* Recent Labs Lab 10/31/17 0406 10/30/17 1717 MG 2.2 1.8 No results for input(s): AMYLASE, LIPASE in the last 168 hours. Recent Labs Lab 10/31/17 0406 TRIG 76 CHOL 161 HDL 37 LDL 109 No results for input(s): AMMONIA in the last 168 hours. Cardiology & Digoxin Recent Labs Lab 10/30/17 2309 10/30/17 1717 TROPONIN 42.90* 21.67* CKMB 90.6* 74.1* ABG No results for input(s): PHART, PO2ART, YSM7YLO, IZS8SEG, BEART, [id number] in the last 168 h ours. No results for input(s): SPECSOURCE, PHPOCB, PCO2, PO2, HCO3, TCO2, BEART, [id number] in the last 168 hours. Drug of overdose and abuse No results for input(s): ALCOHOL, ACTMN, SALICYLATE in the last 168 hours. No results for input(s): AMPHEQUAL, BARBITURATE, BENZSCR, CANNIBSCR, AMPHETAMINE, METHADSCR , OPIATESCR in the last 168 hours. Urinalysis No results for input(s): GLUCOSEU, WBCUA, RBCUA, SQUAMEPIUA, BACTERIAUA, CULTIF in the last 168 hours. Point of care glucose No results for input(s): POCGLU in the last 168 hours. Micro results more choices using dot micro, for reference below is dot [id number] URSR Microbiology Results (72 hrs) No results found for the last 72 hours. Radiology results (more choices using dot risresults) No results found. Serial weights: Filed Weights: 10/30/17 1700 10/31/17 0300 Weight: 67.9 kg (149 lb 11.1 oz) 68.7 kg (151 lb 7.3 oz) Most recent weight: Input and output 2 shifts and 3 shifts: Wt Readings from Last 1 Encounters: 10/31/17 68.7 kg (151 lb 7.3 oz) I/O last 24 Hours: In: 100 [I.V.:100] Out: 750 [Urine:750] I/O last 3 completed shifts: In: 100 [I.V.:100] Out: 750 [Urine:750] Vitals Ranges: Temp: [34.8 C (94.6 F)-37.7 C (99.9 F)] 34.8 C (94.6 F) Pulse: [71-89] 71 Resp: [16-24] 16 BP: (112-133)/(64-77) 112/64 Vitals: Temp: 34.8 C (94.6 F) BP: 112/64 Pulse: 71 Resp: 16 SpO2: 92 % SpO2 92 % on nasal cannula at flow rate 2L/min (dot yvmak) Subjective CC admitted from [place] on for SOB and elevated troponin found to have NONSTEMI wit h SOB as anginal equiv He says no chest pain nor SOB Nor NV (he looks SOB though) ROS See above Exam General Alert NAD elderly Cardiac RRR split S2 vs gallop no murmur and JVD visible with HOB elevated approx 8 cm Extremities Lung tachpnea and mild BBIR trace IC in bases Abdominal + BS soft NT Neuro alert fluent (dot yexaclint) Assessment and Hospital Course (dot meyprob vs meyprobap) Active Hospital Problems Diagnosis NSTEMI (non-ST elevated myocardial infarction) with SOB as anginal equiv He has RBBB which makes EKG more challenging but despite that he had ST seg depression support of ischemia on first EKG which is lessened on EKG today, his troponin is over [address] Barnett says to proceed with stress test (instead of cath) due to renal insuff Had cough for 3 weeks 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) 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 started a week BED OPERATOR then quite SOB on Sat BED OPERATOR along with intermittent ankle oedema NSVT on tele brief (somewhat irreg at times though not think is PAF with abberancy) Acute exacerbation of SYSTOLIC CHF (congestive heart failure) dilated neck veins is on Lasix updated with Systolic CHF and input Echo below Essential hypertension Acquired hypothyroidism Hx of TIA last 2 months 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 Conclusions Summary Mild to moderate mitral regurgitation present. The left atrium is moderately dilated. LA pressure is elevated (by Doppler ratios) Left ventricular size appears to be mildly increased with an ejection fraction estimated at 30-35 %. Akinetic inferior and posterior basal blanca of left ventricle. Global hypokinesis of the left ventricle. Doppler flow profile suggests a pseudo-normal diastolic filling pattern. IVC is not well visualized but seems to be dilated with impaired inspiratory collapse consistent with elevated right atrial pressure. Signature (dot meyaddendum tdnorefesh nownorefresh) (dot meyvent) (dot malnutattest is attestation for malnutrition) Plan Stress test CXR this am ACEI on hold presently On cardiac dose Lovenox Echo result pending KCL oral Continue IV lasix, statin, metoprolol, ASA Dr Hardy favors salt restriction not fluid restriction in CHF unless hyponatremia ensues Addendum (10/31/2017 12:37) Updated chart with Echo (systolic CHF) and I upped the Lasix watch the BP though Time spent with the patient (of which more than 50% was in counseling and/or coordination t he patient's care as outlined above) in minutes exceeded 35 minutes. (dot meyaddendum tdnorefesh nownorefresh) (dot meytime meycritical meysign) Tonny Hardy MD 10/31/2017 7:21 [facility] Reference. This is NOT part of the patient's formal assessment section. In the assessment or plan section of notes the author may date some of the subsections with a number such as "23" or "23" to indicate the date of that entry or event. In the example below the 1st line is the original entry and the subsequent lines indicate flowing updates to the subsection: Example assessment subsection (such as CHF or CP or Pneumonia) 23 Patient is improved today with resolution of symptoms 24th Worse with recurrence of symptoms requiring further testing Portions of this chart may have been created with [employer] voice recognition software. Occasi onal wrong-word or sound-alike substitutions may have occurred due to the inherent blake itations of voice recognition software. Please read the chart carefully and recognize, using context, where these substitutions have occurred Fuad Cleary, YEMI - 10/30/2017 1717 PDT[facility] [place] [facility]. Patient a&o, on 2L, denies any pain, chest pain, n/v, voiding without difficulty, 20g RFA IV started from their ER, spouse at bedside, call light within reach, bed alarm on. Electronically signed by: Fuad Weinstein RN 2017 17:19 in this encounter Plan of Treatment + +--------+ + + | Name | Priori | Associated Diagnoses | Date/Time | | | ty | | | + +--------+ + + | Culture, Urine | Routin | | 11/01/2017 0843 PDT | | | e | | | + +--------+ + + as of this encounter Results CBC with Differential (11/02/2017 0446) + [...] | + + + | Blood | [facility] [address] | | | [place] [address] | + + + Basic Metabolic Panel (11/02/2017 0446) + + + + | [...] GLOMERULAR FILTRATION | >=60 mL/min/1.73m2 | | IRANIAN | RATE,ESTIMATED mL/min/1.28w7Dliy than | | | | 60 Chronic [...] + + + | Blood | [facility] [address] | | | [place] [address] | + + + XR Chest PA and Lateral (11/01/2017918) + + | Narrative | + + [...] | + + + + | Specific [place] | 1.024 | 1.001 - 1.030 | [...] + + | Urine - Urine, | [facility] [address] | | Indwelling Catheter | [place] [address] | + + + Magnesium (11/01/2017 041) + +-------+ + | Component | Value | Ref Range | + +-------+ + | MG | 2.0 | 1.8 - 2.5 mg/dL | + +-------+ + + + + | Specimen | Performing Laboratory | + + + | Blood | [facility] [address] | | | [place] [address] | + + + B Type Natriuretic Peptide (11/01/2017413) + + + + | Component | Value | Ref Range | + + + + | BNP | 2,668 (H) | <100 pg/mL | + + + + + + + | Specimen | Performing Laboratory | + + + | Blood | [facility] [address] | | | [place] [address] | + + + Renal Function Panel (11/01/2017413) + + + + | Component | [...] 44 (L) | >=60 mL/min/1.73m2 | | IRANIAN | | | + + + + [...] + + | Blood | [facility] [address] | | | [place] [address] | + + + CBC no Differential (11/01/2017 0414) + + + + | Component | [...] + + | Blood | [facility] [address] | | | [place] [address] | + + + Renal Function Panel (10/31/2017 0394) + + + + | Component | Value | Ref Range | + + + + | NA | 144 | 136 - 149 mmol/L | + + + + | K | 3.6 | 3.5 - 5.1 mmol/L | + + + + | CL | 108 | 98 - 109 mmol/L | + + + + | CO2 | 27 | 24 - 31 mmol/L | + + + + | ANION GAP | 9 | 3 - 16 mmol/L | + + + + | GLUCOSE | 99 | 70 - 109 mg/dL | + + + + | BUN | 33 (H) | 7 - 18 mg/dL | + + + + | Creatinine, | 1.48 (H) | 0.60 - 1.30 mg/dL | | Serum/Plasma | | | + + + + | eGFR if not | 45 (L) | >=60 mL/min/1.73m2 | | IRANIAN | | | + + + + | CALCIUM | 8.5 | 8.3 - 10.5 mg/dL | + + + + | ALBUMIN | 3.0 (L) | 3.2 - 5.0 g/dL | + + + + | PHOSPHORUS | 2.2 (L) | 2.5 - 4.6 mg/dL | + + + + | BUN/CREA | 22.3 | | + + + + + + + | Specimen | Performing Laboratory | + + + | Blood | [facility] [address] | | | [place] [address] | + + + Troponin I (10/31/2017 1613) + + + + | Component | [...] | | | | myocardial infarction. [employer] | | | | of [employer]iology [...] + + | Blood | [facility] [address] | | | [place] [address] | + + + NM Nuclear Stress Test (Vasodilator) (10/31/2017 1302) + + + | Specimen | Performing [...] Signed by: Susie Lancaster | | MD Tim [facility] 10/31/2017, 13:09 | + + + + | Narrative | + + | NUCLEAR MEDICINE STRESS TEST REPORT Patient Name: Brenda | | Bal[place] Garay Study Date: 10/31/2017 Primary Care Provider: Deniz Rey | | : 1930 Age: 87 y.o. [...] is 21%. | + + Culture, MRSA (10/31/2017829) + + + + | Component | Value | Ref Range | + + + + | Culture | Negative for MRSA by chromogenic agar | | | | method | | + + + + + + + | Specimen | Performing Laboratory | + + + | Tissue - Nares | [facility] [address] | | | [place] [address] | + + + B Type Natriuretic Peptide (10/31/2017826) + + + + | Component | Value | Ref Range | + + + + | BNP | 3,943 (H) | <100 pg/mL | + + + + + + + | Specimen | Performing Laboratory | + + + | Blood | [facility] [address] | | | [place] [address] | + + + XR Chest AP [...] AM | + + ECG 12 lead (10/31/2017622) + + + + | Component | [...] with ECG of | | | | 31-OCT-2017 06:22, (Unconfirmed)Left | | | | posterior fascicular block is now | | | | presentConfirmed by JOSE KHANNA MD ([id number]) | | | | on 10/31/2017 8:00:21 [...] + + + | Blood | [facility] [address] | | | [place] [address] | + + + Maicoime INR (10/31/2017 0406) + + + + | [...] + + | Blood | [facility] [address] | | | [place] [address] | + + + CBC no Differential (10/31/20176) + + + + | Component | Value | Ref Range | + + + + | WBC | 10.2 | 4.0 - 11.0 K/uL | + + + + | RBC | 4.04 (L) | 4.30 - 5.70 M/uL | + + + + | Hgb | 11.8 (L) | 13.5 - 18.0 g/dL | + + + + | Hct | 36.0 (L) | 40.0 - 51.0 % | + + + + | MCV | 89.2 | 83.0 - 101.0 fL | + + + + | MCH | 29.1 | 28.0 - 35.0 pg | + + + + | MCHC | 32.6 | 32.0 - 36.0 g/dL | + + + + | RDW-CV | 14.2 | <15.0 % | + + + + | Platelet Count | 148 | 140 - 440 K/uL | + + + + | MPV | 9.5 | fL | + + + + + + + | Specimen | Performing Laboratory | + + + | Blood | [facility] [address] | | | [place] [address] | + + + Magnesium (10/31/2017 0406) + +-------+ + | Component | Value | Ref Range | + +-------+ + | MG | 2.2 | 1.8 - 2.5 mg/dL | + +-------+ + + + + | Specimen | Performing Laboratory | + + + | Blood | [facility] [address] | | | [place] [address] | + + + Basic Metabolic Panel (10/31/20176) + + + + | Component | Value | Ref Range | + + + + | NA | 141 | 136 - 149 mmol/L | + + + + | K | 3.4 (L) | 3.5 - 5.1 mmol/L | + + + + | CL | 108 | 98 - 109 mmol/L | + + + + | CO2 | 24 | 24 - 31 mmol/L | + + + + | ANION GAP | 9 | 3 - 16 mmol/L | + + + + | GLUCOSE | 115 (H) | 70 - 109 mg/dL | + + + + | BUN | 34 (H) | 7 - 18 mg/dL | + + + + | Creatinine, | 1.58 (H) | 0.60 - 1.30 mg/dL | | Serum/Plasma | | | + + + + | eGFR if not | 42 (L)Comment: GLOMERULAR FILTRATION | >=60 mL/min/1.73m2 | | [place] | RATE,ESTIMATED mL/min/1.00i1Kvdb than | | | | 60 Chronic [...] + + + + | BUN/CREA | 21.5 | | + + + + + + + | Specimen | Performing Laboratory | + + + | Blood | [facility] [address] | | | [place] [address] | + + + CK-MB (10/30/20172308) + + + + | Component | Value | Ref Range | + + + + | CK-MB | 90.6 (H) | 0.6 - 6.3 ng/mL | + + + + + + + | Specimen | Performing Laboratory | + + + | Blood | [facility] [address] | | | [place] [address] | + + + Troponin I (10/30/2017 2309) + + + + | Component | Value | Ref Range | + + + + | Troponin I | 42.90 ()Comment: Reference | <0.06 ng/mL | | | Ranges:0.00-0.06 = NORMAL>0.06 = | | | | SUSPICIOUS FOR MYOCARDIAL DAMAGE NOTE: | | | | Values greater than 0.50 ng/mL have been | | | | shown to be strongly associated with acute | | | | myocardial infarction. Critical Result | | | | called to and read back by [place] on | | | | 10/30/2017 at 23:56 by Sunil Morrison. | | | | The [employer] ([employer]) | | | | recommends a decision limit of 0.06 ng/mL | | | | for this assay. Results greater than | | | | 0.06 can reflect a pre-infarct acute | | | | coronary syndrome, but can also reflect | | | | myocardial necrosis or injury that is not | | | | due to coronary artery disease. Some of | | | | these causes are sepsis, hypocolemia, | | | | atrial fibrillation, heart failure, | | | | pulmonary embolism, myocarditis, myocardial | | | | contusion, and renal failure. The | | | | diagnosis of myocardial infarction should | | | | be based on a combination of the patient's | | | | clinical presentation and the clinical | | | | laboratory test results (especially serial | | | | troponin levels). | | + + + + + + + | Specimen | Performing Laboratory | + + + | Blood | [facility] [address] | | | [place] [address] | + + + ECHO Complete (10/30/20171934) + +-------+ + | Component | Value | Ref Range | + +-------+ + | LVEF-TTE | 35 | | | TRANSTHORACIC ECHO | | | + +-------+ + + + | Narrative | + + | Transthoracic Echocardiography Report (TTE) Demographics Patient Name | | TANISHA GUTIERREZ Room Number 452 | | [place] Patient Number [id number] Date of | | Study 10/30/2017 Visit Number [id number] | | Referring Physician ROSANNA WESTHALIE | | Number Date of 1930 [facility] | | [facility] | | | | [facility] Age 87 | | year(s) Interpreting Virgie BARNETT MD | | Slip Cover Maker | | 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 Akinetic inferior and posterior basal blanac of left | | ventricle. Global hypokinesis [...] 1.07 cm PW Diastolic: 0.96 cm EF Vsucqirxf19% EF | | Calculated: 29% Miscellaneous Aorta Aortic Root: 3.48 cm Ascending | | Aorta: 3.57 cm | + + + + | Procedure Note | + + | Roberto, Rad Results In - 10/31/2017 0946 PDT Transthoracic Echocardiography Report (TTE) | | | | Demographics | | | | Patient Name TANISHA GUTIERREZ Room Number 452 | | [place] | | | | Patient Number [id number] Date of Study 10/30/2017 | | | | Visit Number [id number] | | | | Referring Physician ROSANNA NUÑEZ | | Number | | | | Date of 1930 [facility] | | [facility] | | | | Age 87 year(s) Interpreting J TONNY BARNETT MD | | Slip Cover Maker | | | | 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 | | | | Procedure | | [...] PW Diastolic: 0.96 cm | | EF Vevzcrcgt39% | | EF Calculated: 29% | | | | Miscellaneous | | | | Aorta | | | | Aortic Root: 3.48 cm | | Ascending Aorta: 3.57 cm | + + ECG 12 lead (10/30/2017 180) + + + + | Component | Value | Ref Range | + + + + | VENTRICULAR RATE EKG | 90 | BPM | + + + + | ATRIAL RATE | 90 | BPM | + + + + | P-R INTERVAL | 150 | ms | + + + + | QRS DURATION | 148 | ms | + + + + | Q-T INTERVAL | 446 | ms | + + + + | Q-T INTERVAL | 545 | ms | | (CORRECTED) | | | + + + + | P WAVE AXIS | 33 | degrees | + + + + | QRS AXIS | 80 | degrees | + + + + | T AXIS | -43 | degrees | + + + + | INTERPRETATION TEXT | Normal sinus rhythmRight bundle branch | | | | blockST depression in leads V3-6 and | | | | inferior leads:consider | | | | ischemia/ACSAbnormal ECGNo previous ECGs | | | | availableReconfirmed by JOSE KHANNA MD | | | | ([id number]) on 10/31/2017 8:00:40 AM | | | | | | + + + + + + + | Specimen | Performing Laboratory | + + + | | [facility] | + + + CBC no Differential (10/30/20171720) + + + + | Component | Value | Ref Range | + + + + | WBC | 12.9 (H) | 4.0 - 11.0 K/uL | + + + + | RBC | 4.16 (L) | 4.30 - 5.70 M/uL | + + + + | Hgb | 11.9 (L) | 13.5 - 18.0 g/dL | + + + + | Hct | 37.2 (L) | 40.0 - 51.0 % | + + + + | MCV | 89.5 | 83.0 - 101.0 fL | + + + + | MCH | 28.7 | 28.0 - 35.0 pg | + + + + | MCHC | 32.1 | 32.0 - 36.0 g/dL | + + + + | RDW-CV | 13.9 | <15.0 % | + + + + | Platelet Count | 154 | 140 - 440 K/uL | + + + + | MPV | 9.6 | fL | + + + + + + + | Specimen | Performing Laboratory | + + + | Blood | [facility] [address] | | | [place] [address] | + + + Extra Lavender Top Tube (10/30/2017 1721) + +-------+ + | Component | Value | Ref Range | + +-------+ + | Extra Lavender Top | Done | | | Tube | | | + +-------+ + + + + | Specimen | Performing Laboratory | + + + | Blood | [facility] [address] | | | [place] [address] | + + + Hemoglobin A1C (10/30/2017 [...] + + + | Blood | [facility] [address] | | | [place] [address] | + + + Protime INR (10/30/2017 1720) + + + + | Component | Value | Ref Range | + + + + | Protime | 17.2 (H) | 11.3 - 13.9 seconds | + + + + | INR | 1.41 (H)Comment: Usual Oral Anticoagulation | 0.90 - 1.10 | | | Range: 2.0 - 3.0High Level Oral | | | | Anticoagulation Range: 2.5 - 3.5 | | | |High Level Oral Anticoagulation Range: 2.5 - 3.5 | | + + + + + + + | Specimen | Performing Laboratory | + + + | Blood | [facility] [address] | | | [place] [address] | + + + Extra Blue Top Tube (10/30/2017 8495) + +-------+ + | Component | Value | Ref Range | + +-------+ + | Extra Blue Top Tube | Done | | + +-------+ + + + + | Specimen | Performing Laboratory | + + + | Blood | [facility] [address] | | | [place] [address] | + + + Extra Lavender Top Tube (10/30/2017 6204) + +-------+ + | Component | Value | Ref Range | + +-------+ + | Extra Lavender Top | Done | | | Tube | | | + +-------+ + + + + | Specimen | Performing Laboratory | + + + | Blood | [facility] [address] | | | [place] [address] | + + + Hepatic Function Panel (10/30/2017 3090) + + + + | Component | [...] + + | Blood | [facility] [address] | | | [place] [address] | + + + CK-MB (10/30/2017 1717) + + + + | Component | Value | Ref Range | + + + + | CK-MB | 74.1 (H) | 0.6 - 6.3 ng/mL | + + + + + + + | Specimen | Performing Laboratory | + + + | Blood | [facility] [address] | | | [place] [address] | + + + Basic Metabolic Panel (10/30/2017 1717) + + + + | Component | Value | Ref Range | + + + + | NA | 140 | 136 - 149 mmol/L | + + + + | K | 3.4 (L) | 3.5 - 5.1 mmol/L | + + + + | CL | 109 | 98 - 109 mmol/L | + + + + | CO2 | 23 (L) | 24 - 31 mmol/L | + + + + | ANION GAP | 8 | 3 - 16 mmol/L | + + + + | GLUCOSE | 135 (H) | 70 - 109 mg/dL | + + + + | BUN | 31 (H) | 7 - 18 mg/dL | + + + + | Creatinine, | 1.69 (H) | 0.60 - 1.30 mg/dL | | Serum/Plasma | | | + + + + | eGFR if not | 39 (L)Comment: GLOMERULAR FILTRATION | >=60 mL/min/1.73m2 | | [place] | RATE,ESTIMATED mL/min/1.37d3Vhbn than | | | | 60 Chronic kidney disease,if found over | | | | a 3-month period.Less than 15 Kidney | | | | failureFor Americans,multiply the | | | | calculated GFR by 1.21. | | | | | | | | | | + + + + | CALCIUM | 8.5 | 8.3 - 10.5 mg/dL | + + + + | BUN/CREA | 18.3 | | + + + + + + + | Specimen | Performing Laboratory | + + + | Blood | [facility] [address] | | | [place] [address] | + + + Magnesium (10/30/20171716) + +-------+ + | Component | Value | Ref Range | + +-------+ + | MG | 1.8 | 1.8 - 2.5 mg/dL | + +-------+ + + + + | Specimen | Performing Laboratory | + + + | Blood | [facility] [address] | | | [place] [address] | + + + TSH (10/30/20171716) + + + + | Component | Value | Ref Range | + + + + | TSH | 3.05Comment: This is a third generation TSH | 0.45 - 5.33 uIU/mL | | | test. | | + + + + + + + | Specimen | Performing Laboratory | + + + | Blood | [facility] [address] | | | [place] [address] | + + + Troponin I (10/30/2017 1717) + + + + | Component | Value | Ref Range | + + + + | Troponin I | 21.67 ()Comment: Reference | <0.06 ng/mL | | | Ranges:0.00-0.06 = NORMAL>0.06 = | | | | SUSPICIOUS FOR MYOCARDIAL DAMAGE NOTE: | | | | Values greater than 0.50 ng/mL have been | | | | shown to be strongly associated with acute | | | | myocardial infarction. [employer] | | | | of [employer]iology [...] (especially serial | | | | troponin levels). Critical Result called to | | | | and read back by Angelica Timmons RN on | | | | 10/30/2017 at 17:54 by Dinora Carlin. | | + + + + + + + | Specimen | Performing Laboratory | + + + | Blood | [facility] [address] | | | [place] [address] | + + + in this encounter Visit Diagnoses + + | Diagnosis | + + | NSTEMI (non-ST elevated myocardial infarction) (HCC) - Primary | + + | Acute myocardial infarction, subendocardial infarction, episode of care unspecified | + + | Essential hypertension | + + | Unspecified essential hypertension | + + | Acute on chronic congestive heart failure, unspecified heart failure type ([facility]) | + + | Acute on chronic combined systolic and diastolic congestive heart failure (HCC) | + + | Acute on chronic combined systolic and diastolic heart failure | + + | Acute systolic heart failure (HCC) | + + | Acute systolic heart failure | + + | Elevated troponin | + + | Other abnormal blood chemistry | + + | Acquired hypothyroidism | + + | Unspecified hypothyroidism | + + Admitting Diagnoses + + | Diagnosis | + + | new onset CHF | + + Administered Medications + +--------+---------+------+------+------+ | Medication Order | MAR | Action | Dose | Rate | Site | | | Action | Date | | | | + +--------+---------+------+------+------+ + +---+ | acetaminophen (TYLENOL) tablet | | | 650 mg 650 mg, Oral, EVERY 4 | | | HOURS PRN, Pain, or fever >= 38.6 | | | C (101.5 F), Starting Sun | | | 10/30/17 at 1704 | | + +---+ | | | + +---+ + +-------+ +-------+---+---+ | aspirin chewable tablet 81 mg | Given | | 81 mg | | | | 81 mg, Oral, DAILY, First dose on | | 8 8:41 | | | | | 10/30/17 at 1730 | | PDT | | | | + +-------+ +-------+---+---+ +-------+ +-------+---+---+ | Given | 11/01/2017 | 81 mg | | | | | 8:52 | | | | | | PDT | | | | +-------+ +-------+---+---+ | Given | 11/02/2017 | 81 mg | | | | | 8:32 | | | | | | PDT | | | | +-------+ +-------+---+---+ +---+---+ | | | +---+---+ + +-------+ +-------+---+---+ | atorvaSTATin (LIPITOR) tablet | Given | | 40 mg | | | | 40 mg 40 mg, Oral, DAILY, First | | 8 21:13 | | | | | dose on 10/30/17 at 1830 | | PDT | | | | + +-------+ +-------+---+---+ +-------+ +-------+---+---+ | Given | | 40 mg | | | | | 8 21:46 | | | | | | PDT | | | | +-------+ +-------+---+---+ | Given | 11/01/2017 | 40 mg | | | | | 21:39 | | | | | | PDT | | | | +-------+ +-------+---+---+ +---+---+ | | | +---+---+ + +-------+ +-------+---+ + | enoxaparin (LOVENOX) 60 mg/0.6 | Given | | 60 mg | | Abdomen- | | mL injection 60 mg 60 mg | | 8 19:54 | | | LLQ | | (rounded from 67.9 mg = 1 mg/kg | | PDT | | | | | | | | | | | | 67.9 kg), Subcutaneous, EVERY 12 | | | | | | | HOURS (2 times per day), First | | | | | | | dose on 10/30/17 at 1830 | | | | | | + +-------+ +-------+---+ + +-------+ +-------+---+ + | Given | | 60 mg | | Abdomen- | | | 8 8:43 | | | LLQ | | | PDT | | | | +-------+ +-------+---+ + | Given | | 60 mg | | Abdomen- | | | 8 21:45 | | | LUQ | | | PDT | | | | +-------+ +-------+---+ + +---+---+ | | | +---+---+ + +-------+ +-------+---+---+ | furosemide (LASIX) injection 20 | Given | | 20 mg | | | | mg 20 mg, Intravenous, 2 TIMES | | 8 17:34 | | | | | DAILY 0800 & 1600, First dose on | | PDT | | | | | 10/30/17 at 1730 | | | | | | + +-------+ +-------+---+---+ +-------+ +-------+---+---+ | Given | | 20 mg | | | | | 8 8:50 | | | | | | PDT | | | | +-------+ +-------+---+---+ +---+---+ | | | +---+---+ + +-------+ +-------+---+---+ | furosemide (LASIX) injection 40 | Given | 11/01/2017 | 40 mg | | | | mg 40 mg, Intravenous, 2 TIMES | | 8:54 | | | | | DAILY 0800 & 1600, First dose on | | PDT | | | | | 10/31/17 at 1600 | | | | | | + +-------+ +-------+---+---+ +-------+ +-------+---+---+ | Given | 11/01/2017 | 40 mg | | | | | 16:18 | | | | | | PDT | | | | +-------+ +-------+---+---+ | Given | 11/02/2017 | 40 mg | | | | | 8:31 | | | | | | PDT | | | | +-------+ +-------+---+---+ +---+---+ | | | +---+---+ + +-------+ +--------+---+---+ | levothyroxine (SYNTHROID) | Given | 11/01/2017 | 88 mcg | | | | tablet 88 mcg 88 mcg, Oral, | | 7:10 | | | | | DAILY BEFORE BREAKFAST, First | | PDT | | | | | dose on Tue11/01/17 at 0730, Give | | | | | | | before breakfast. | | | | | | + +-------+ +--------+---+---+ +-------+ +--------+---+---+ | Given | 11/02/2017 | 88 mcg | | | | | 6:36 | | | | | | PDT | | | | +-------+ +--------+---+---+ +---+---+ | | | +---+---+ + +-------+ +---+---+---+ | lidocaine (XYLOCAINE) 2% jelly | Given | | | | | | (uro-jet) YESY Morrison foley, | | 8 18:43 | | | | | Starting 10/30/17 at 1816 | | PDT | | | | + +-------+ +---+---+---+ +---+---+ | | | +---+---+ + +-------+ + +---+---+ | lidocaine (XYLOCAINE) 2% jelly | Given | | 1 | | | | (uro-jet) Prince, ONCE, Mon | | 8 4:05 | Applicat | | | | 10/31/17 at 0400, For 1 dose | | PDT | ion | | | + +-------+ + +---+---+ +---+---+ | | | +---+---+ + +-------+ +--------+---+---+ | lisinopril (PRINIVIL,ZESTRIL) | Given | 11/01/2017 | 2.5 mg | | | | tablet 2.5 mg 2.5 mg, Oral, 2 | | 8:52 | | | | | TIMES DAILY, First dose on Tue | | PDT | | | | | 11/01/17 at 0900 | | | | | | + +-------+ +--------+---+---+ +-------+ +--------+---+---+ | Given | 11/01/2017 | 2.5 mg | | | | | 21:39 | | | | | | PDT | | | | +-------+ +--------+---+---+ | Given | 11/02/2017 | 2.5 mg | | | | | 8:32 | | | | | | PDT | | | | +-------+ +--------+---+---+ +---+---+ | | | +---+---+ + +---------+ +-----+-------+---+ | magnesium sulfate in dextrose 1 | New Bag | | 1 g | 100 | | | g/100 mL IVPB 1 g 1 g, | | 8 19:46 | | mL/hr | | | Intravenous, Administer over 60 | | PDT | | | | | Minutes, ONCE, 10/30/17 at | | | | | | | 1915, For 1 dose, Maximum | | | | | | | recommended infusion rate = 1 | | | | | | | gram/hour. | | | | | | + +---------+ +-----+-------+---+ + +---+ | | | + +---+ | melatonin tablet 3 mg 3 mg, | | | Oral, NIGHTLY PRN, Insomnia, | | | Starting 10/30/17 at 1809 | | + +---+ | | | + +---+ + +-------+ +---------+---+---+ | metoprolol tartrate (LOPRESSOR) | Given | 11/01/2017 | 12.5 mg | | | | tablet 12.5 mg 12.5 mg, Oral, 2 | | 8:52 | | | | | TIMES DAILY, First dose on Sun | | PDT | | | | | 10/30/17 at 2100 | | | | | | + +-------+ +---------+---+---+ +-------+ +---------+---+---+ | Given | 11/01/2017 | 12.5 mg | | | | | 21:40 | | | | | | PDT | | | | +-------+ +---------+---+---+ | Given | 11/02/2017 | 12.5 mg | | | | | 8:32 | | | | | | PDT | | | | +-------+ +---------+---+---+ + +---+ | | | + +---+ | nitroglycerin (NITROSTAT) SL | | | tablet 0.4 mg 0.4 mg, | | | Sublingual, EVERY 5 MIN PRN, | | | Chest pain, Starting 10/30/17 | | | at 1704, May give every 5 minutes | | | PRN chest pain, up to three | | | doses, and notify physician after | | | 2nd dose given - Do not give if | | | the SBP<100 | | + +---+ | | | + +---+ + +-------+ +--------+---+---+ | potassium chloride (K-DUR) ER | Given | | 20 mEq | | | | tablet 20 mEq 20 mEq, Oral, | | 8 21:13 | | | | | ONCE, 10/30/17 at 2200, For 1 | | PDT | | | | | dose | | | | | | + +-------+ +--------+---+---+ +---+---+ | | | +---+---+ + +-------+ +--------+---+---+ | potassium chloride (K-DUR) ER | Given | | 20 mEq | | | | tablet 20 mEq 20 mEq, Oral, | | 8 8:41 | | | | | ONCE, 10/31/17 at 0745, For 1 | | PDT | | | | | dose | | | | | | + +-------+ +--------+---+---+ +---+---+ | | | +---+---+ + +-------+ +--------+---+---+ | potassium chloride (K-DUR) ER | Given | | 20 mEq | | | | tablet 20 mEq 20 mEq, Oral, 2 | | 8 10:24 | | | | | TIMES DAILY, First dose on Mon | | PDT | | | | | 10/31/17 at 0915, For 3 doses | | | | | | + +-------+ +--------+---+---+ +-------+ +--------+---+---+ | Given | | 20 mEq | | | | | 8 21:46 | | | | | | PDT | | | | +-------+ +--------+---+---+ | Given | 11/01/2017 | 20 mEq | | | | | 8:52 | | | | | | PDT | | | | +-------+ +--------+---+---+ +---+---+ | | | +---+---+ + +-------+ +--------+---+---+ | potassium chloride (KLOR-CON) | Given | | 10 mEq | | | | ER tablet 10 mEq 10 mEq, Oral, | | 8 19:54 | | | | | ONCE, 10/30/17 at 1830, For 1 | | PDT | | | | | dose, May take with food to | | | | | | | decrease GI upset. | | | | | | + +-------+ +--------+---+---+ +---+---+ | | | +---+---+ + +-------+ +--------+---+---+ | regadenoson (LEXISCAN) | Given | | 0.4 mg | | | | injection 0.4 mg 0.4 mg, | | 8 8:52 | | | | | Intravenous, ONCE PRN, protocol, | | PDT | | | | | Starting 10/31/17 at 0852, For | | | | | | | 1 dose, Give IV push over 10 | | | | | | | seconds, then follow immediately | | | | | | | with 5 mL saline flush. | | | | | | + +-------+ +--------+---+---+ +---+---+ | | | +---+---+ + +-------+ +---------+---+---+ | spironolactone (ALDACTONE) | Given | 11/01/2017 | 12.5 mg | | | | tablet 12.5 mg 12.5 mg, Oral, | | 8:52 | | | | | DAILY, First dose on Tue11/01/17 | | PDT | | | | | at 0900, Hazardous: Use | | | | | | | appropriate handling precautions. | | | | | | + +-------+ +---------+---+---+ +-------+ +---------+---+---+ | Given | 11/02/2017 | 12.5 mg | | | | | 8:32 | | | | | | PDT | | | | +-------+ +---------+---+---+ +---+---+ | | | +---+---+ + +-------+ + +---+---+ | technetium [id number] sestamibi | Given | | 10.3 | | | | (CARDIOLITE) injection 10.3 | | 8 8:52 | millicur | | | | millicurie 10.3 millicurie, | | PDT | ies | | | | Intravenous, ONCE PRN, Other, | | | | | | | Starting 10/31/17 at 0852, For | | | | | | | 1 dose, Nuclear Medicine | | | | | | + +-------+ + +---+---+ +---+---+ | | | +---+---+ in this encounter
--- OUTSIDE RECORDS SUMMARY | ~2017-11-03 | XMS | Encounter Summary ---
Demographics + + + | Address | [address] | | | [place] [address] | + + + | Home Phone | | + + + | Preferred Language | Unknown | + + + | Marital Status | | + + + | Episcopalian Affiliation | Unknown | + + + | Race | Unknown | + + + | Ethnic Group | Unknown | + + + Author + + + | Author | [facility] | | | and Khadarana | + + + | Organization | [facility] | | | and Khadarana [...] Team Providers + +------+ + | Care Clinical Business Analyst Name | Role | Phone | [...] + + | 10/30/ | Hospital | [facility] | Mary Lou Dorado MD | NSTEMI (non-ST | | 2018 - | Encounter | MED CTR ICU [address] | [address] | elevated myocardial | | | | [place], | [place], [place] | infarction) ([facility]); | | 11/02/ | | [place] [address] | [id number] | Essential | | 2017 | | [phone] | | hypertension; Acute | | | | | | on chronic | | | | | | congestive heart | | | | | | failure, unspecified | | | | | | heart failure type | | | | | | ([facility]); Acute on | | | | | | 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 | | | | | | diastolic congestive | | | | | | heart failure | | | | | | ([facility]); Acute | | | | | | systolic heart | | | | | | failure ([facility]) | +--------+ + + + + Social [...] may be different from the o dereck. [facility] DISCHARGE SUMMARY Pt. Name/Age/: Brenda Garay 87 [...] an appt @ 10:00 am. Contact information: [address] [place] [phone] REFERENCE LAB [facility] On 11/03/2017. Specialty: Lab Why: Please have lab work done on , 11/03 prior to appt on 11/04 with MD. This will al low your MD to have lab results for the appt. Contact information: [address] [place] [phone] RESULTS: Transthoracic Echocardiography Report (TTE) Demographics Patient Name TANISHA GUTIERREZ Room Number Rose Mary FORD Patient Number [id number] Date of Study 10/30/2017 Visit Number [id number] Referring Physician ROSANNA BRETTHWA Number Date of 1930 Adoption Specialist PIOTR PAUL RDCS Age 87 year(s) Interpreting Virgie BARNETT MD [place] Gender Male Nurse Stress Global Process Owner Procedure Type of Study TTE procedure: ECHO [...] 1.07 cm PW Diastolic: 0.96 cm EF Jgqrphxxl40% EF Calculated: 29% Miscellaneous Aorta Aortic Root: [...] inferior segments) Signed by: Susie Barnett MD [facility] 10/31/2017, 13:09 Results for BRENDA [...] of breath to the emergency room at [facility] and was found to be in CHF [...] signed by: Salty Cuevas MD, 11/02/2017 14:39 [facility] Portions of this chart may have been created with [employer] voice recognition software. Occasi onal wrong-word or [...] heartbeat or fast pulse Date Last Reviewed: 04/03/201619991568-[address] [employer] [place] [address]. All righ ts reserved. This information is [...] the veins,fluid leaks out into the tissues. Peterson then causesthat fluid to move to those [...] more tired than usual Date Last Reviewed: 07/07/201519991799-[address] [employer] [place] [address]. All righ ts reserved. This information is [...] Progress Notes Peter Dorado PharmD - 11/02/2017 1788 PDTHarvey Balta Garay was admitted for NSTEMI [...] may be dif ferent from the original. [facility] Hospitalist Progress Note Brenda [...] as outlined above. Salty Cuevas 11/01/2017 8:30 [facility] Portions of this chart may have been created with [employer] voice recognition software. Occasi onal wrong-word or [...] strength, and directions X Pharmacy list names: [facility] X [facility] (Prescription Monitoring Program) X [employer] insurance reported [...] capsule by mouth twice daily Best possible PERFUME COMPOUNDER medication list after pharmacy review: PT REPORTED [...] performed and electronically signed by Debra Bobby, Steward/Stewardess Sm[facility] 2017 12:16 Reviewed by Kalli Duval, PharmD [...] an d low. ASSESSMENT: Cardiovascular: Moderate sized ND Acute systolic heart failure There are not [...] note may be different from the original. [place], [place] HOSPITALIST PROGRESS NOTE Patient: Brenda Garay : 1930: Age: 87 y.o. MedRec: [id number] PCP: Deniz Rey MD Admission date: 10/30/2017 Hospital day [...] ABG No results for input(s): PHART, PO2ART, RPW1TID, JCR5ZKN, BEART, Y6TNVTRV in the last 168 h ours. No results for input(s): SPECSOURCE, PHPOCB, PCO2, PO2, HCO3, TCO2, BEART, HPOK3GHA in the last 168 hours. 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 COMPOUNDER (dry) SOB started a week PERFUME COMPOUNDER then quite SOB on Sat PERFUME COMPOUNDER along with intermittent ankle oedema NSVT on tele brief (somewhat irreg at times though not think is PAF with abberancy) Acute exacerbation of SYSTOLIC CHF (congestive heart failure) dilated neck veins is on Lasix updated with Systolic CHF and input Echo below Essential hypertension Acquired hypothyroidism Hx of TIA last 2 months PERFUME COMPOUNDER and 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 This is NOT part of the [...] this chart may have been created with [employer] voice recognition software. Occasi onal wrong-word or sound-alike substitutions may have occurred due to the inherent blake itations of voice recognition software. Please read the chart carefully and recognize, using context, where these substitutions have occurred Fuad Cleary, YEMI - 10/30/[address] [facility] [place] [facility]-emergent ambulance. Patient a&o, on [...] | + + + | Blood | [facility] [address] | | | [place] [address] | + + + Basic Metabolic Panel [...] GLOMERULAR FILTRATION | >=60 mL/min/1.73m2 | | NAMIBIAN | RATE,ESTIMATED mL/min/1.71d1Zhgy than | | | | 60 Chronic [...] + + + | Blood | [facility] [address] | | | [place] [address] | + + + XR Chest PA [...] | + + + + | Specific Peterson | 1.024 | 1.001 - 1.030 | [...] + + | Urine - Urine, | [facility] [address] | | Indwelling Catheter | [place] [address] | + + + Magnesium (11/01/2017 041) + +-------+ + | Component | Value | Ref Range | + +-------+ + | MG | 2.0 | 1.8 - 2.5 mg/dL | + +-------+ + + + + | Specimen | Performing Laboratory | + + + | Blood | [facility] [address] | | | [place] [address] | + + + B Type Natriuretic Peptide (11/01/2017413) + + + + | Component | Value | Ref Range | + + + + | BNP | 2,668 (H) | <100 pg/mL | + + + + + + + | Specimen | Performing Laboratory | + + + | Blood | [facility] [address] | | | [place] [address] | + + + Renal Function Panel [...] 44 (L) | >=60 mL/min/1.73m2 | | NAMIBIAN | | | + + + + [...] | + + + | Blood | [facility] [address] | | | [place] [address] | + + + CBC no Differential [...] | + + + | Blood | [facility] [address] | | | [place] [address] | + + + Renal Function Panel (10/31/2017 3085) + + + + | Component | [...] 45 (L) | >=60 mL/min/1.73m2 | | NAMIBIAN | | | + + + + [...] | + + + | Blood | [facility] [address] | | | [place] [address] | + + + Troponin I (10/31/2017 [...] | | | | myocardial infarction. [employer] | | | | of Cardiology [...] | + + + | Blood | [facility] [address] | | | [place] [address] | + + + [place] Nuclear Stress [...] by: Susie Lancaster | | MD Tim [facility] 10/31/2017, 13:09 | + + [...] + + | Tissue - Nares | [facility] [address] | | | [place] [address] | + + + B Type Natriuretic Peptide (10/31/2017826) + + + + | Component | Value | Ref Range | + + + + | BNP | 3,943 (H) | <100 pg/mL | + + + + + + + | Specimen | Performing Laboratory | + + + | Blood | [facility] [address] | | | [place] [address] | + + + XR Chest AP [...] | | presentConfirmed by JOSE KHANNA MD ([id number]) | | | | on 10/31/2017 8:00:21 [...] + + + | Blood | [facility] [address] | | | [place] [address] | + + + Maicoime INR (10/31/2017 [...] | + + + | Blood | [facility] [address] | | | [place] [address] | + + + CBC no Differential [...] + + + | Blood | [facility] [address] | | | [place] [address] | + + + Magnesium (10/31/2017 0406) + +-------+ + | Component | Value | Ref Range | + +-------+ + | MG | 2.2 | 1.8 - 2.5 mg/dL | + +-------+ + + + + | Specimen | Performing Laboratory | + + + | Blood | [facility] [address] | | | [place] [address] | + + + Basic Metabolic Panel [...] GLOMERULAR FILTRATION | >=60 mL/min/1.73m2 | | NAMIBIAN | RATE,ESTIMATED mL/min/1.02x9Dyzm than | | | | 60 Chronic [...] | + + + | Blood | [facility] [address] | | | [place] [address] | + + + CK-MB (10/30/20172308) + + + + | Component | Value | Ref Range | + + + + | CK-MB | 90.6 (H) | 0.6 - 6.3 ng/mL | + + + + + + + | Specimen | Performing Laboratory | + + + | Blood | [facility] [address] | | | [place] [address] | + + + Troponin I (10/30/2017 [...] Sunil Morrison. | | | | [employer] ([employer]) | | | [...] + + + | Blood | [facility] [address] | | | [place] [address] | + + + ECHO Complete (10/30/20171934) + +-------+ + | Component | Value | Ref Range | + +-------+ + | LVEF-TTE | 35 | | | TRANSTHORACIC ECHO | | | + +-------+ + + + | Narrative | + + | Transthoracic Echocardiography Report (TTE) Demographics Patient Name | | TANISHA GUTIERREZ Room Number 452 | | [place] Patient Number [id number] Date of | | Study 10/30/2017 Visit Number [id number] | | Referring Physician ROSANNA WESTHALIE | | Number Date of 1930 Adoption Specialist | | PIOTR EBVERLY | | | | [facility] Age 87 | | year(s) Interpreting Virgie BARNETT MD | | [place] | | Gender Male Nurse | | Stress Global Process Owner | | Procedure Type of Study TTE [...] 1.07 cm PW Diastolic: 0.96 cm EF Opcvstqcr79% EF | | Calculated: 29% Miscellaneous Aorta [...] [place] | | | | Patient Number [id number] Date of Study 10/30/2017 | | | | Visit Number [id number] | | | | Referring Physician ROSANNA NUÑEZ | | Number | | | | Date of 1930 Adoption Specialist PIOTR PAUL | | RDCS | | | | Age 87 year(s) Interpreting J TONNY BARNETT MD | | [place]er | | | | Gender Male Nurse | | | | Stress Global Process Owner | | | | Procedure | | [...] PW Diastolic: 0.96 cm | | EF Arijakzvh14% | | EF Calculated: 29% | | [...] JOSE KHANNA MD | | | | ([id number]) on 10/31/2017 8:00:40 AM | | | [...] | + + + | Blood | [facility] [address] | | | [place] [address] | + + + Extra Lavender Top Tube (10/30/2017 1721) + +-------+ + | Component | Value | Ref Range | + +-------+ + | Extra Lavender Top | Done | | | Tube | | | + +-------+ + + + + | Specimen | Performing Laboratory | + + + | Blood | [facility] [address] | | | [place] [address] | + + + Hemoglobin A1C (10/30/2017 [...] + + + | Blood | [facility] [address] | | | [place] [address] | + + + Protime INR (10/30/2017 [...] | + + + | Blood | [facility] [address] | | | [place] [address] | + + + Extra Blue Top Tube (10/30/2017 6893) + +-------+ + | Component | Value | Ref Range | + +-------+ + | Extra Blue Top Tube | Done | | + +-------+ + + + + | Specimen | Performing Laboratory | + + + | Blood | [facility] [address] | | | [place] [address] | + + + Extra Lavender Top Tube (10/30/2017 2446) + +-------+ + | Component | Value | Ref Range | + +-------+ + | Extra Lavender Top | Done | | | Tube | | | + +-------+ + + + + | Specimen | Performing Laboratory | + + + | Blood | [facility] [address] | | | [place] [address] | + + + Hepatic Function Panel (10/30/2017 8529) + + + + | Component | [...] | + + + | Blood | [facility] [address] | | | [place] [address] | + + + CK-MB (10/30/2017 1717) + + + + | Component | Value | Ref Range | + + + + | CK-MB | 74.1 (H) | 0.6 - 6.3 ng/mL | + + + + + + + | Specimen | Performing Laboratory | + + + | Blood | [facility] [address] | | | [place] [address] | + + + Basic Metabolic Panel [...] GLOMERULAR FILTRATION | >=60 mL/min/1.73m2 | | NAMIBIAN | RATE,ESTIMATED mL/min/1.62q1Fsxe than | | | | 60 Chronic [...] + + + | Blood | [facility] [address] | | | [place] [address] | + + + Magnesium (10/30/20171716) + +-------+ + | Component | Value | Ref Range | + +-------+ + | MG | 1.8 | 1.8 - 2.5 mg/dL | + +-------+ + + + + | Specimen | Performing Laboratory | + + + | Blood | [facility] [address] | | | [place] [address] | + + + TSH (10/30/20171716) + + + + | Component | Value | Ref Range | + + + + | TSH | 3.05Comment: This is a third generation TSH | 0.45 - 5.33 uIU/mL | | | test. | | + + + + + + + | Specimen | Performing Laboratory | + + + | Blood | [facility] [address] | | | [place] [address] | + + + Troponin I (10/30/2017 [...] | | | | myocardial infarction. [employer] | | | | of Cardiology [...] | + + + | Blood | [facility] [address] | | | [place] [address] | + + + in this encounter [...] congestive heart failure, unspecified heart failure type ([facility]) | + + | Acute on chronic [...]
--- OUTSIDE RECORDS SUMMARY | ~2017-11-03 | XMS | Clinical Summary ---
Demographics + + + | Address | [address] | | | [place] [address] | + + + | Home Phone | | + + + | Preferred Language | Unknown | + + + | Marital Status | | + + + | Restorationism Affiliation | Unknown | + + + | Race | Unknown | + + + | Ethnic Group | Unknown | + + + Author + + + | Author | [facility] | | | and Khadarana | + + + | Organization | [facility] | | | and Khadarana [...] Team Providers + +------+ + | Care Education Courses Sales Representative Name | Role | Phone | + [...] Acute exacerbation of CHF (congestive heart failure) ([facility]) | 10/30/2017 | + + + | Elevated troponin | 10/30/2017 | + + + | Essential hypertension | 10/30/2017 | + + + | Acquired hypothyroidism | 10/30/2017 | + + + | CVA (cerebral vascular accident) ([facility]) | 10/30/2017 | + + + | NSTEMI (non-ST elevated myocardial infarction) ([facility]) | 10/30/2017 | + + + Encounters [...] | | | | | | infarction) ([facility]); | | 11/02/ | | | | Essential | | 2017 | | | | hypertension; Acute | | | | | | on chronic | | | | | | congestive heart | | | | | | failure, unspecified | | | | | | heart failure type | | | | | | ([facility]); Acute on | | | | | | 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 | | | | | | diastolic congestive | | | | | | heart failure | | | | | | ([facility]); Acute | | | | | | systolic heart | | | | | | failure ([facility]) | +--------+ + + + + +---+ [...] | | from the | | | original.[place] | | | [address] | | [...] Number: | | | | | | [id number] | | | Date of | | [...] | | n [place] | | | [phone] | | | [phone] | | | [...] | | [address] | | | n [place] | | | [phone] | | | [phone] | | | [...] | | ent Number | | | [id number] | | | | | | Date of | | | Study | | | | | | 10/30/2017 | | | Visit | | | Number | | | [id number] | | | Accession | | | | | | [id number] | | | HS | | | [...] | | cm EF | | | [id number] | | | % EF | | [...] | | | MRN: | | | [id number] | | | : | | | [...] | | | (MRN | | | [id number] | | | ) as of | [...] NOT | | | | | | TUNISIAN | | | Latest Ref | | [...] | | | (MRN | | | [id number] | | | ) as of | [...] | | | (MRN | | | [id number] | | | ) as of | [...] | | | (MRN | | | [id number] | | | ) as of | [...] | | | 14:39 | | | [facility] | | | [facility] | | | Medical | | | [...] + + + | Blood | [facility] [address] | | | [place] [address] | + + + Basic Metabolic Panel (11/02/2017 4406)Only the most recent of 3 results within [...] GLOMERULAR FILTRATION | >=60 mL/min/1.73m2 | | TUNISIAN | RATE,ESTIMATED mL/min/1.19u0Boei than | | | | 60 Chronic [...] + + + | Blood | [facility] [address] | | | [place] [address] | + + + XR Chest PA [...] | + + + + | Specific [place] | 1.024 | 1.001 - 1.030 | [...] + | Urine - Urine, | [facility] [address] | | Indwelling Catheter | [place] [address] | + + + CBC no Differential (11/01/2017 0714)Only the most recent of 3 results within [...] + + + | Blood | [facility] [address] | | | [place] [address] | + + + B Type Natriuretic [...] [address] | | | [place] [address] | + + + Magnesium (11/01/2017 7864)Only the most recent of 3 results within the time period is incl uded. + +-------+ + | Component | Value | Ref Range | + +-------+ + | MG | 2.0 | 1.8 - 2.5 mg/dL | + +-------+ + + + + | Specimen | Performing Laboratory | + + + | Blood | [facility] [address] | | | [place] [address] | + + + Renal Function Panel [...] 44 (L) | >=60 mL/min/1.73m2 | | TUNISIAN | | | + + + + [...] + + + | Blood | [facility] [address] | | | [place] [address] | + + + Troponin I (10/31/2017 8833)Only the most recent of 3 results within [...] | | | | myocardial infarction. [employer] | | | | of Cardiology [...] + + + | Blood | [facility] [address] | | | [place] [address] | + + + [place] Nuclear Stress Test (Vasodilator) (10/31/2017 1305) + + + | Specimen | Performing [...] by: Susie Lancaster | | MD Ericka [facility] 10/31/2017, 13:09 | + + + + [...] + | Tissue - Trey | [facility] [address] | | | [place] [address] | + + + XR Chest AP [...] | | presentConfirmed by JOSE KHANNA MD ([id number]) | | | | on 10/31/2017 8:00:21 [...] + + + | Blood | [facility] [address] | | | [place] [address] | + + + Protime INR (10/31/2017 [...] | + + + | Blood | [facility] [address] | | | [place] [address] | + + + CK-MB (10/30/20172308)Only the [...] + + + | Blood | [facility] [address] | | | [place] [address] | + + + ECHO Complete (10/30/20171934) + +-------+ + | Component | Value | Ref Range | + +-------+ + | LVEF-TTE | 35 | | | TRANSTHORACIC ECHO | | | + +-------+ + + + | Narrative | + + | Transthoracic Echocardiography Report (TTE) Demographics Patient Name | | TANISHA TUCSON Room Number 452 | | [place] Patient Number [id number] Date of | | Study 10/30/2017 Visit Number [id number] | | Referring Physician AVE NUÑEZ | | Number Date of 1930 Ethnographer | | PIOTR PAUL | | | | RDCS Age 87 | | year(s) Interpreting Virgie BARNETT MD | | Quality Lab Technician | | Gender Male Nurse | | Stress Law Enforcement Director | | Procedure Type of Study TTE [...] 1.07 cm PW Diastolic: 0.96 cm EF Cmemutebn53% EF | | Calculated: 29% Miscellaneous Aorta [...] [place] | | | | Patient Number [id number] Date of Study 10/30/2017 | | | | Visit Number [id number] | | | | Referring Physician AVE NUÑEZ | | Number | | | | Date of 1930 Ethnographer PIOTR BEVERLY | | RDCS | | | | Age 87 year(s) Interpreting Virgie BARNETT MD | | Quality Lab Technician | | | | Gender Male Nurse | | | | Stress Law Enforcement Director | | | | Procedure | | [...] PW Diastolic: 0.96 cm | | EF Ndqfkrlvd63% | | EF Calculated: 29% | | [...] + + + | Blood | [facility] [address] | | | [place] [address] | + + + Extra Blue Top Tube (10/30/2017 2489) + +-------+ + | Component | Value | Ref Range | + +-------+ + | Extra Blue Top Tube | Done | | + +-------+ + + + + | Specimen | Performing Laboratory | + + + | Blood | [facility] [address] | | | [place] [address] | + + + Hemoglobin A1C (10/30/2017 [...] + + + | Blood | [facility] [address] | | | [place] [address] | + + + TSH (10/30/20171716) + + + + | Component | Value | Ref Range | + + + + | TSH | 3.05Comment: This is a third generation TSH | 0.45 - 5.33 uIU/mL | | | test. | | + + + + + + + | Specimen | Performing Laboratory | + + + | Blood | [facility] [address] | | | [place] [address] | + + + Hepatic Function Panel [...] | + + + | Blood | [facility] [address] | | | [place] [address] | + + + from Last 3 [...] 1930 | [phone] | [place] [address] | | | ramon | | | [address] | | + +--------+ +--------+ + +
[~2017-11-03 11:36] MED LIST changes: +LISINOPRIL5 MG PO
--- NOTE | 2017-11-03 13:46 | NUR ---
[facility] WAS CALLED FOR PT IN ER. I RESPONDED AND FLAQUITA JAZMIN ORR REQUESTED I TAKE FAMILY TO QUIET . THEY WERE STANDING AROUND THE AMBULANCE ENTRANCE OUT- SIDE. THEY REQUESTED TO REMAIN OUTSIDE BECAUSE OF TODDLERS. I RELAYED INFO TO THEM FROM MED STAFF THAT PT IS IN VERY SERIOUS COND. THEY RESPONDED VERY APPROPRIATELY. DR BARAJAS CAME OUT AND VERY COMPASSIONATELY AND HONESTLY BEGAN TO EXPLAIN TO FAMILY PT'S CONDITION. BECAUSE OF PT'S AGE AND RECENT MED. ISSUES FAM CHOSE TO NOT USE ANY LIFE SUPPORT. PT PRONOUNCED @ 1153 HRS. I NOTIFIED FAMILY, AND BROUGHT HIS , DAUGHTER DANGELO AND GRANDDAUGHTER IN. PERSONAL EFFECTS GIVEN TO DANGELO, THEY HAVE PREARRANGEMENTS WITH [employer] [employer]. GAVE THE FAMILY EACH TIME ALONE WITH PT. PLACED PASSAGE QUILT AND FLAG ON PT. FAMILY SEEMED PLEASED. HAD PRAYER WITH FAMILY, AND CONTACTED [facility] AT FAMILY'S DIRECTION. DANGELO AND HER DAUGHTERS CHOSE TO REMAIN FOR [employer] [employer]. ESCORTED PT TO VEHICLE. FAMILY AND FRIENDS PRESENT ALL VERY GRACIOUS AND EXPRESSED THEIR APPRECIATION. THE [employer] CLIENT RELATIONSHIP EXECUTIVE THAT WAS CALLED TO TRANSPORT PT WENT TO FAMILY AND VERY COMPASSIONATELY EXPRESSED HIS CONDOLENCES. WONDERFUL GESTURE ON HIS PART.
== END 2017-11-03 12:00 ==
LOC: ED 11:36
DX: I46.9 Cardiac arrest, cause unspecified (principal); I10 Essential (primary) hypertension; Z79.899 Other long term (current) drug therapy
CPT/HCPCS: 96374; 96375; 99284; J0171; J0461; J7030